=== PATIENT | female | born 1955 | race Caucasian/White ===

== ENCOUNTER 2017-07-06 13:20 | Emergency (ER) | payer MEDICARE ==
[2017-07-06] MEDS ORDERED: methylPREDNISolone SOD SUCC PF 125 MG/2 ML VIAL. IV ONE (13:45)
[2017-07-06] MEDS ORDERED: IPRATRPIUM/ALBUTEROL 0.5/2.5MG 3 ML NEBU. NEB ONE (13:45)
[2017-07-06 13:56] LABS: BASO # 0.1 x10^3/uL (0.0-0.2); BASO % 1 % (0-3); EOS # 0.1 x10^3/uL (0.0-0.7); EOS % 1 % (0-3); HEMATOCRIT 47.7 % (36.0-47.0); HEMOGLOBIN 16.3 g/dL (12.0-15.5); LYMPH % 18 % (24-48); MEAN CORPUSCULAR HEMOGLOBIN 31 pg (25-35); MEAN CORPUSCULAR HGB CONC 34 g/dL (31-37); MEAN CORPUSCULAR VOLUME 91 fL (79-100); MONO # 0.8 x10^3/uL (0.0-1.1); MONO % 7 % (0-9); NEUT # 8.4 x10^3uL (1.8-7.7); NEUT % 73 % (31-73); PLATELET COUNT 167 x10^3/uL (140-400); RED BLOOD COUNT 5.23 x10^6/uL (3.50-5.40); WHITE BLOOD COUNT 11.5 x10^3/uL (4.0-11.0)
--- NOTE | 2017-07-06 14:10 | RAD ---
Chest radiograph 07/06/2017 3:31 PM Indication: Shortness of breath Comparison: None available Technique: PA and lateral views of the chest are provided. Findings: Cardiomediastinal silhouette is within normal limits. No pleural effusions, pulmonary vascular congestion or pneumothorax. There is minimal interstitial prominence. The lungs are otherwise clear. Osseous structures are normal. Cholecystectomy clips are identified in the right upper quadrant. Impression: There is minimal interstitial prominence which may represent early interstitial pneumonitis versus edema. Short-term follow-up radiograph may be of benefit.
[2017-07-06 14:14] LABS: INFLUENZA A PATIENT NEGATIVE (NEGATIVE); INFLUENZA B PATIENT NEGATIVE (NEGATIVE)
[2017-07-06 14:17] LABS: ALBUMIN 3.8 g/dL (3.4-5.0); ALBUMIN/GLOBULIN RATIO 0.9 (1.0-1.7); CALCIUM 9.1 mg/dL (8.5-10.1); CREATININE 1.5 mg/dL (0.6-1.0); GFR 35.2; POTASSIUM 3.7 mmol/L (3.5-5.1); TOTAL BILIRUBIN 0.3 mg/dL (0.2-1.0); TOTAL PROTEIN 7.9 g/dL (6.4-8.2)
--- NOTE | 2017-07-06 14:25 | PHYS DOC ---
Past History Past Medical History: CAD, COPD, Hypertension Smoking: Cigarettes, Greater than 1 pack/day Alcohol Use: Occasionally Drug Use: None Adult General Chief Complaint Chief Complaint: SHORTNESS OF BREATH HPI HPI 62-year-old female patient with history of smoking one pack of cigarettes a day not home oxygen complaining of productive cough with white sputum and shortness of breath that getting worse with exertion for the last 4 or 5 days after she ran out of her medication. Patient complaining of nasal congestion and pain in her throat and her chest during episodes of cough without fever and chills. Patient complaining of few episodes of diarrhea daily without vomiting and urinary symptom. Review of Systems Review of Systems Constitutional: Denies fever or chills [] Eyes: Denies change in visual acuity, redness, or eye pain [] HENT: Reports nasal congestion and sore throat [] Respiratory: Reports cough and shortness of breath [] Cardiovascular: No additional information not addressed in HPI [] GI: Denies abdominal pain, nausea, vomiting, bloody stools, reports diarrhea [] : Denies dysuria or hematuria [] Musculoskeletal: Denies back pain or joint pain [] Integument: Denies rash or skin lesions [] Neurologic: Denies headache, focal weakness or sensory changes [] Endocrine: Denies polyuria or polydipsia [] All other systems were reviewed and found to be within normal limits, except as documented in this note. Current Medications Current Medications Current Medications Medications (Trade) Dose Ordered Sig/Joseph Start Time Stop Time Status Last Admin Dose Admin Albuterol/ Ipratropium (Duoneb) 3 ml 1X ONCE 07/06/17 13:45 07/06/17 14:11 DC 07/06/17 13:41 3 ML Methylprednisolone Sodium Succinate (SOLU-Medrol 125MG VIAL) 125 mg 1X ONCE 07/06/17 13:45 07/06/17 14:11 DC 07/06/17 13:56 125 MG Allergies Allergies Allergies Coded Allergies Type Severity Reaction Last Updated Verified codeine Allergy Intermediate 07/06/17 Yes Physical Exam Physical Exam Constitutional: Well developed, moderate distress, non-toxic appearance. [] HENT: Normocephalic, atraumatic, bilateral external ears normal, oropharynx moist, no oral exudates, nose normal. [] Eyes: PERRLA, EOMI, conjunctiva normal, no discharge. [] Neck: Normal range of motion, no tenderness, supple, no stridor. [] Cardiovascular:Heart rate regular rhythm, no murmur [] Lungs & Thorax: Bilateral rhonchi with decreased of air movement Abdomen: Bowel sounds normal, soft, no tenderness, no masses, no pulsatile masses. [] Skin: Warm, dry, no erythema, no rash. [] Back: No tenderness, no CVA tenderness. [] Extremities: No tenderness, no cyanosis, no clubbing, ROM intact, no edema. [] Neurologic: Alert and oriented X 3, normal motor function, normal sensory function, no focal deficits noted. [] Psychologic: Affect normal, judgement normal, mood normal. [] Current Patient Data Vital Signs Vital Signs Date Time Temp Pulse Resp B/P (MAP) Pulse Ox O2 Delivery O2 Flow Rate FiO2 07/06/17 13:41 93 Nasal Cannula 2.0 Lab Results Laboratory Tests Test 07/06/17 13:40 White Blood Count 11.5 x10^3/uL (4.0-11.0) H Red Blood Count 5.23 x10^6/uL (3.50-5.40) Hemoglobin 16.3 g/dL (12.0-15.5) H Hematocrit 47.7 % (36.0-47.0) H Mean Corpuscular Volume 91 fL (79-100) Mean Corpuscular Hemoglobin 31 pg (25-35) Mean Corpuscular Hemoglobin Concent 34 g/dL (31-37) Red Cell Distribution Width 14.0 % (11.5-14.5) Platelet Count 167 x10^3/uL (140-400) Neutrophils (%) (Auto) 73 % (31-73) Lymphocytes (%) (Auto) 18 % (24-48) L Monocytes (%) (Auto) 7 % (0-9) Eosinophils (%) (Auto) 1 % (0-3) Basophils (%) (Auto) 1 % (0-3) Neutrophils # (Auto) 8.4 x10^3uL (1.8-7.7) H Lymphocytes # (Auto) 2.0 x10^3/uL (1.0-4.8) Monocytes # (Auto) 0.8 x10^3/uL (0.0-1.1) Eosinophils # (Auto) 0.1 x10^3/uL (0.0-0.7) Basophils # (Auto) 0.1 x10^3/uL (0.0-0.2) Sodium Level 143 mmol/L (136-145) Potassium Level 3.7 mmol/L (3.5-5.1) Chloride Level 103 mmol/L (98-107) Carbon Dioxide Level 32 mmol/L (21-32) Anion Gap 8 (6-14) Blood Urea Nitrogen 18 mg/dL (7-20) Creatinine 1.5 mg/dL (0.6-1.0) H Estimated GFR (Cockcroft-Gault) 35.2 BUN/Creatinine Ratio 12 (6-20) Glucose Level 128 mg/dL (70-99) H Lactic Acid Level 1.6 mmol/L (0.4-2.0) Calcium Level 9.1 mg/dL (8.5-10.1) Total Bilirubin 0.3 mg/dL (0.2-1.0) Aspartate Amino Transferase (AST) 18 U/L (15-37) Alanine Aminotransferase (ALT) 21 U/L (14-59) Alkaline Phosphatase 109 U/L (46-116) Creatine Kinase 46 U/L (26-192) Troponin I Quantitative < 0.017 ng/mL (0-0.055) XB-Bpl-Q-Type Natriuretic Peptide 82 pg/mL (0-124) Total Protein 7.9 g/dL (6.4-8.2) Albumin 3.8 g/dL (3.4-5.0) Albumin/Globulin Ratio 0.9 (1.0-1.7) L Influenza Type A (Rapid) Negative (NEGATIVE) Influenza Type B (Rapid) Negative (NEGATIVE) EKG EKG EKG interpreted by me. EKG at 1353 showed normal sinus rhythm with prolonged QT without ST and T wave abnormality[] Radiology/Procedures Radiology/Procedures [] Course & Med Decision Making Course & Med Decision Making Pertinent Labs and Imaging studies reviewed. (See chart for details) Evaluation of patient in ER showed 63-year-old female patient with history of smoking complaining of shortness of breath and productive cough for several days after she ran out of her medication. Patient had O2 sats of 84 at arrival to ER that improved with oxygen to 91 and 92%. Chest x-ray did not show infiltration. Patient had negative lactic acid. Patient treated with IV fluid, Rocephin, Solu-Medrol, DuoNeb and felt better. Patient refuses admission and signed AGAINST MEDICAL ADVICE. [] Dragon Disclaimer Dragon Disclaimer This electronic medical record was generated, in whole or in part, using a voice recognition dictation system. Departure Departure: Impression: Primary Impression: COPD exacerbation Additional Impressions: Hypoxia Tobacco abuse Tobacco abuse counseling Renal insufficiency Noncompliance by refusing service Disposition: AGAINST MEDICAL ADVICE (At 1529) Condition: IMPROVED Referrals: PCP,NO (PCP) Patient Instructions: Chronic Obstructive Pulmonary Disease Exacerbation, Hypoxemia, Smoking Cessation Additional Instructions: Quit smoking Follow-up with your primary care physician in one or 2 days Return to emergency room if not getting better Scripts Albuterol Sulfate (PROAIR HFA INHALER) 8.5 Gm Hfa.aer.ad 2 PUFF INH PRN Q6HRS Y for SHORTNESS OF BREATH, #1 INHALER 0 Refills Prov: PAUL PURVIS MD 07/06/17 Doxycycline Hyclate (DOXYCYCLINE HYCLATE) 100 Mg Capsule 1 CAP PO BID, #14 CAP Prov: PAUL PURVIS MD 07/06/17 Benzonatate (TESSALON PERLE) 100 Mg Capsule 1 CAP PO TID, #30 CAP Prov: PAUL PURVIS MD 07/06/17 Methylprednisolone (MEDROL) 4 Mg Tab.ds.pk 1 PKG PO UD, #1 PKG Prov: PAUL PURIVS MD 07/06/17 Critical Care Time Critical care time was [60] minutes exclusive of procedures. Problem Qualifiers PAUL PURVIS MD Jul 06, 2017 14:25
[2017-07-06] MEDS ORDERED: IV NORMAL SALINE 500ML 500 ML IV ONE (14:30)
[2017-07-06 14:53] LABS: BGAS PH 7.38 (7.35-7.45)
[2017-07-06] MEDS ORDERED: cefTRIAXone IV Push 1 GM VIAL. IVP ONE (15:00)
[2017-07-06] MEDS ORDERED: METH4TAB2 PO (15:35)
[2017-07-06] MEDS ORDERED: ALBU8.5H8 INH (15:35)
[2017-07-06] MEDS ORDERED: BENZ100C PO (15:35)
[2017-07-06] MEDS ORDERED: DOXY100C2 PO (15:35)
--- NOTE | 2017-07-06 16:02 | EKG ---
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
[2017-07-06 16:35] VITALS: BP 108/68
== END 2017-07-06 16:30 | disposition left against medical advice (07) ==
LOC: ER 13:20
DX: J44.1 Chronic obstructive pulmonary disease with (acute) exacerbation (principal); R09.02 Hypoxemia; N28.9 Disorder of kidney and ureter, unspecified; F17.210 Nicotine dependence, cigarettes, uncomplicated; I25.10 Atherosclerotic heart disease of native coronary artery without angina pectoris; I10 Essential (primary) hypertension; Z91.19 Patient's noncompliance with other medical treatment and regimen; Z71.6 Tobacco abuse counseling; Z88.5 Allergy status to narcotic agent
CPT/HCPCS: 36415; 71046; 80053; 82550; 82803; 83605; 83880; 84484; 85025; 87040; 87804; 93005; 94640; 96361; 96374; 96375; 99285; J0696; J2930; J7040; J7620

== ENCOUNTER 2017-07-18 15:49 | Emergency (ER) | payer MEDICARE ==
[~2017-07-18] VITALS: Ht 154.9 cm; Wt 59.0 kg
[~2017-07-18 15:49] MED LIST: ALBU8.5H8 INH; BENZ100C PO; DOXY100C2 PO; METH4TAB2 PO
[2017-07-18] MEDS ORDERED: ALBUTEROL SULFATE 2.5 MG/3 ML NEBU. ONE (16:25)
[2017-07-18] MEDS ORDERED: methylPREDNISolone SOD SUCC PF 40 MG/ML VIAL. IV ONE (16:40)
[2017-07-18] MEDS ORDERED: IPRATRPIUM/ALBUTEROL 0.5/2.5MG 3 ML NEBU. NEB ONE (16:40)
--- NOTE | 2017-07-18 16:55 | RAD ---
2 view chest 07/18/2017 Clinical indication: Shortness of air, tobacco use. Comparison: 07/06/2017 chest. Findings: Cardiac and mediastinal silhouettes are unremarkable. No pleural effusion, pneumothorax or focal consolidation. There are right upper quadrant cholecystectomy clips. Impression: No acute cardiopulmonary abnormality.
[2017-07-18 17:27] LABS: BASO # 0.1 x10^3/uL (0.0-0.2); BASO % 1 % (0-3); EOS # 0.1 x10^3/uL (0.0-0.7); EOS % 1 % (0-3); HEMATOCRIT 46.1 % (36.0-47.0); HEMOGLOBIN 15.5 g/dL (12.0-15.5); LYMPH # 1.9 x10^3/uL (1.0-4.8); LYMPH % 21 % (24-48); MEAN CORPUSCULAR HEMOGLOBIN 31 pg (25-35); MEAN CORPUSCULAR HGB CONC 34 g/dL (31-37); MEAN CORPUSCULAR VOLUME 92 fL (79-100); MONO # 0.7 x10^3/uL (0.0-1.1); MONO % 7 % (0-9); NEUT # 6.6 x10^3uL (1.8-7.7); NEUT % 70 % (31-73); PLATELET COUNT 113 x10^3/uL (140-400); RED BLOOD COUNT 5.02 x10^6/uL (3.50-5.40); RED CELL DISTRIBUTION WIDTH 14.2 % (11.5-14.5); WHITE BLOOD COUNT 9.4 x10^3/uL (4.0-11.0)
[2017-07-18] MEDS ORDERED: PRED-220 PO (17:42)
[2017-07-18] MEDS ORDERED: FLUT1DIS3 IH (17:42)
[2017-07-18] MEDS ORDERED: TIOT18CA IH (17:42)
[2017-07-18] MEDS ORDERED: ALBU8.5H8 INH (17:42)
--- NOTE | 2017-07-18 17:42 | PHYS DOC ---
Past History Past Medical History: CAD, COPD, Hypertension Past Surgical History: Cholecystectomy, Hysterectomy Smoking: Cigarettes, Greater than 1 pack/day Alcohol Use: Occasionally Drug Use: None Adult General Chief Complaint Chief Complaint: SHORTNESS OF BREATH HPI HPI Patient is a 62 year old F who presents with cough and shortness of breath over the past 1-2 weeks. She says that she has been out of her inhalers during this time. Her symptoms are gradually worsened. She denies fever sweats or chills. Her cough is not productive. Her symptoms are similar to previous episodes of COPD exacerbation. She has no other associated symptoms at this time. She has no other exacerbating or alleviating factors. Review of Systems Review of Systems Constitutional: Denies fever or chills [] Eyes: Denies change in visual acuity, redness, or eye pain [] HENT: Denies nasal congestion or sore throat [] Respiratory: Negative except history of present illness Cardiovascular: No additional information not addressed in HPI [] GI: Denies abdominal pain, nausea, vomiting, bloody stools or diarrhea [] : Denies dysuria or hematuria [] Musculoskeletal: Denies back pain or joint pain [] Integument: Denies rash or skin lesions [] Neurologic: Denies headache, focal weakness or sensory changes [] Endocrine: Denies polyuria or polydipsia [] All other systems were reviewed and found to be within normal limits, except as documented in this note. Family History Family History No current medications were reviewed Current Medications Current Medications Current Medications Medications (Trade) Dose Ordered Sig/Joseph Start Time Stop Time Status Last Admin Dose Admin Albuterol Sulfate (Ventolin) 2.5 mg STK-MED ONCE 07/18/17 16:25 07/18/17 16:26 DC Albuterol/ Ipratropium (Duoneb) 3 ml 1X ONCE 07/18/17 16:40 07/18/17 16:41 DC 07/18/17 16:17 3 ML Methylprednisolone Sodium Succinate (SOLU-Medrol 40MG VIAL) 29.5 mg 1X ONCE 07/18/17 16:40 07/18/17 16:41 DC 07/18/17 17:03 40 MG Allergies Allergies Allergies Coded Allergies Type Severity Reaction Last Updated Verified codeine Allergy Intermediate 07/06/17 Yes Physical Exam Physical Exam Constitutional: Well developed, well nourished, no acute distress, non-toxic appearance. [] HENT: Normocephalic, atraumatic, bilateral external ears normal, oropharynx moist, no oral exudates, nose normal. [] Eyes: EOMI, conjunctiva normal, no discharge. [] Neck: Normal range of motion, no tenderness, supple, no stridor. [] Cardiovascular:Heart rate regular rhythm, no murmur [] Lungs & Thorax: Diminished breath sounds bilaterally with moderate wheezing and tightness noted bilaterally. Significant improvement was noted after breathing treatments and steroids Abdomen: Bowel sounds normal, soft, no tenderness, no masses, no pulsatile masses. [] Skin: Warm, dry, no erythema, no rash. [] Back: No tenderness, no CVA tenderness. [] Extremities: No tenderness, no cyanosis, no clubbing, ROM intact, no edema. [] Neurologic: Alert and oriented X 3, normal motor function, normal sensory function, no focal deficits noted. [] Psychologic: Affect normal, judgement normal, mood normal. [] Current Patient Data Vital Signs Vital Signs Date Time Temp Pulse Resp B/P (MAP) Pulse Ox O2 Delivery O2 Flow Rate FiO2 07/18/17 16:27 93 Room Air 07/18/17 16:16 98.2 104 26 Lab Results Laboratory Tests Test 07/18/17 17:05 White Blood Count 9.4 x10^3/uL (4.0-11.0) Red Blood Count 5.02 x10^6/uL (3.50-5.40) Hemoglobin 15.5 g/dL (12.0-15.5) Hematocrit 46.1 % (36.0-47.0) Mean Corpuscular Volume 92 fL (79-100) Mean Corpuscular Hemoglobin 31 pg (25-35) Mean Corpuscular Hemoglobin Concent 34 g/dL (31-37) Red Cell Distribution Width 14.2 % (11.5-14.5) Platelet Count 113 x10^3/uL (140-400) L Neutrophils (%) (Auto) 70 % (31-73) Lymphocytes (%) (Auto) 21 % (24-48) L Monocytes (%) (Auto) 7 % (0-9) Eosinophils (%) (Auto) 1 % (0-3) Basophils (%) (Auto) 1 % (0-3) Neutrophils # (Auto) 6.6 x10^3uL (1.8-7.7) Lymphocytes # (Auto) 1.9 x10^3/uL (1.0-4.8) Monocytes # (Auto) 0.7 x10^3/uL (0.0-1.1) Eosinophils # (Auto) 0.1 x10^3/uL (0.0-0.7) Basophils # (Auto) 0.1 x10^3/uL (0.0-0.2) EKG EKG [] Radiology/Procedures Radiology/Procedures Chest x-ray Impressions: No acute disease noted, emphysematous Course & Med Decision Making Course & Med Decision Making Pertinent Labs and Imaging studies reviewed. (See chart for details) [] Dragon Disclaimer Dragon Disclaimer This electronic medical record was generated, in whole or in part, using a voice recognition dictation system. Departure Departure: Impression: Primary Impression: COPD exacerbation Disposition: HOME, SELF-CARE Condition: IMPROVED Referrals: NON,STAFF (PCP) Patient Instructions: Chronic Obstructive Pulmonary Disease Exacerbation Additional Instructions: Ashley was seen in the emergency department for shortness of breath. No emergency medical condition was found on history or physical exam. She did have moderate improvement with breathing treatments and steroids in the emergency room. She is given prescriptions for inhalers and oral steroids. She was advised to return to the emergency room if she develops new or worsening symptoms. She was also advised follow-up with her primary care doctor in the next 3-5 days for further management. Scripts Fluticasone/Salmeterol (ADVAIR 250-50 DISKUS) 1 Each Disk.w.dev 1 PUFF IH BID, #3 INHALER 0 Refills Prov: REGI MELISSA MD 07/18/17 Tiotropium [place] (SPIRIVA) 18 Mcg Cap.w.dev 1 CAP IH DAILY, #30 CAP 0 Refills Prov: REGI MELISSA MD 07/18/17 Prednisone (PREDNISONE) 10 Mg Tablet 40 MG PO DAILY for 5 Days, #20 TAB Prov: REGI MELISSA MD 07/18/17 Albuterol Sulfate (PROAIR HFA INHALER) 8.5 Gm Hfa.aer.ad 1 PUFF INH PRN Q6HRS Y for SHORTNESS OF BREATH for 7 Days, INHALER 0 Refills Prov: REGI MELISSA MD 07/18/17 REGI MELISSA MD Jul 18, 2017 17:42
[2017-07-18 17:51] LABS: CALCIUM 8.7 mg/dL (8.5-10.1); CREATININE 1.1 mg/dL (0.6-1.0); GFR 50.3
[2017-07-18 17:52] LABS: POTASSIUM 4.1 mmol/L (3.5-5.1)
[2017-07-18 17:57] VITALS: BP 136/91
== END 2017-07-18 18:02 | disposition home or self-care (01) ==
LOC: ER 15:49
DX: J44.1 Chronic obstructive pulmonary disease with (acute) exacerbation (principal); I25.10 Atherosclerotic heart disease of native coronary artery without angina pectoris; I10 Essential (primary) hypertension; F17.210 Nicotine dependence, cigarettes, uncomplicated; Z88.5 Allergy status to narcotic agent
CPT/HCPCS: 36415; 71046; 80048; 82553; 83880; 84484; 85025; 94640; 96374; 99285; J2920; J7620

== ENCOUNTER 2017-07-29 15:30 | Observation (INO) | payer MEDICARE ==
[~2017-07-29] VITALS: Ht 157.5 cm; Wt 61.0 kg
[~2017-07-29 15:30] MED LIST changes: +FLUT1DIS3 IH; +PRED-220 PO; +TIOT18CA IH
[2017-07-29 16:21] LABS: BASO # 0.1 x10^3/uL (0.0-0.2); BASO % 1 % (0-3); EOS # 0.1 x10^3/uL (0.0-0.7); EOS % 1 % (0-3); HEMATOCRIT 46.6 % (36.0-47.0); HEMOGLOBIN 15.6 g/dL (12.0-15.5); LYMPH # 2.7 x10^3/uL (1.0-4.8); LYMPH % 26 % (24-48); MEAN CORPUSCULAR HEMOGLOBIN 31 pg (25-35); MEAN CORPUSCULAR HGB CONC 34 g/dL (31-37); MEAN CORPUSCULAR VOLUME 94 fL (79-100); MONO # 0.9 x10^3/uL (0.0-1.1); MONO % 9 % (0-9); NEUT # 6.5 x10^3uL (1.8-7.7); NEUT % 63 % (31-73); PLATELET COUNT 147 x10^3/uL (140-400); RED BLOOD COUNT 4.99 x10^6/uL (3.50-5.40); RED CELL DISTRIBUTION WIDTH 14.3 % (11.5-14.5); WHITE BLOOD COUNT 10.3 x10^3/uL (4.0-11.0)
--- NOTE | 2017-07-29 16:32 | RAD ---
EXAM: Chest, single view. HISTORY: Chest pain. COMPARISON: None. FINDINGS: A frontal view of the chest is obtained. There is no infiltrate, effusion or pneumothorax. The heart is normal in size. IMPRESSION: No acute pulmonary finding. Electronically signed by: Falguni Hairston MD (07/29/2017 4:28 PM) [place] [id number]
[2017-07-29 16:45] LABS: ALBUMIN 3.5 g/dL (3.4-5.0); ALBUMIN/GLOBULIN RATIO 1.1 (1.0-1.7); ALK PHOS 96 U/L (46-116); ALT (SGPT) 24 U/L (14-59); ANION GAP 10 (6-14); AST (SGOT) 17 U/L (15-37); BLOOD UREA NITROGEN 13 mg/dL (7-20); BUN/CREATININE RATIO 12 (6-20); CALCIUM 8.5 mg/dL (8.5-10.1); CARBON DIOXIDE 28 mmol/L (21-32); CHLORIDE 103 mmol/L (98-107); CREATINE KINASE 33 U/L (26-192); CREATININE 1.1 mg/dL (0.6-1.0); GFR 50.3; GLUCOSE 111 mg/dL (70-99); LIPASE 206 U/L (73-393); POTASSIUM 3.9 mmol/L (3.5-5.1); SODIUM 141 mmol/L (136-145); TOTAL BILIRUBIN 0.3 mg/dL (0.2-1.0); TOTAL PROTEIN 6.7 g/dL (6.4-8.2)
--- NOTE | 2017-07-29 17:16 | EKG ---
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
--- NOTE | 2017-07-29 17:26 | PHYS DOC ---
Past History Past Medical History: CAD, COPD, Hypertension Past Surgical History: Cholecystectomy, Hysterectomy, Tonsillectomy Smoking: Cigarettes, Greater than 1 pack/day Alcohol Use: Occasionally Drug Use: None Adult General Chief Complaint Chief Complaint: CHEST PAIN [facility] HPI 62-year-old female patient with history of hypertension and COPD and currently smoking brought in by EMS because of chest pain. Patient complaining of nonexertional substernal chest pain as a sharp pain with shortness of breath, dizziness, palpitation and nausea without radiation of the pain that started around 1430. Patient rated her pain 9/10 and states she took nitroglycerin 1 and her pain resolved after 20 minutes. Patient states she had episodes of chest pain but today her pain was worse than usual. Patient states she had a chemical stress test 1 year ago with unremarkable results. Patient denies history of the artery disease but according to EMR she had history of coronary artery disease. She denies having history of coronary artery disease. Review of Systems Review of Systems Constitutional: Denies fever or chills [] Eyes: Denies change in visual acuity, redness, or eye pain [] HENT: Denies nasal congestion or sore throat [] Respiratory: Reports cough and shortness of breath Cardiovascular: No additional information not addressed in HPI [] GI: Denies abdominal pain, nausea, vomiting, bloody stools or diarrhea [] : Denies dysuria or hematuria [] Musculoskeletal: Denies back pain or joint pain [] Integument: Denies rash or skin lesions [] Neurologic: Denies headache, focal weakness or sensory changes [] Endocrine: Denies polyuria or polydipsia [] All other systems were reviewed and found to be within normal limits, except as documented in this note. Allergies Allergies Allergies Coded Allergies Type Severity Reaction Last Updated Verified codeine Allergy Intermediate 07/06/17 Yes Physical Exam Physical Exam Constitutional: Well developed, well nourished, mild distress, non-toxic appearance. [] HENT: Normocephalic, atraumatic, bilateral external ears normal, oropharynx moist, no oral exudates, nose normal. [] Eyes: PERRLA, EOMI, conjunctiva normal, no discharge. [] Neck: Normal range of motion, no tenderness, supple, no stridor. [] Cardiovascular:Heart rate regular rhythm, no murmur [] Lungs & Thorax: Bilateral breath sounds clear to auscultation [] Abdomen: Bowel sounds normal, soft, no tenderness, no masses, no pulsatile masses. [] Skin: Warm, dry, no erythema, no rash. [] Back: No tenderness, no CVA tenderness. [] Extremities: No tenderness, no cyanosis, no clubbing, ROM intact, no edema. [] Neurologic: Alert and oriented X 3, normal motor function, normal sensory function, no focal deficits noted. [] Psychologic: Affect normal, judgement normal, mood normal. [] Current Patient Data Vital Signs Vital Signs Date Time Temp Pulse Resp B/P (MAP) Pulse Ox O2 Delivery O2 Flow Rate FiO2 07/29/17 16:41 73 26 103/43 (63) 96 Nasal Cannula 2.0 07/29/17 15:30 98.2 Lab Results Laboratory Tests Test 07/29/17 16:00 White Blood Count 10.3 x10^3/uL (4.0-11.0) Red Blood Count 4.99 x10^6/uL (3.50-5.40) Hemoglobin 15.6 g/dL (12.0-15.5) H Hematocrit 46.6 % (36.0-47.0) Mean Corpuscular Volume 94 fL (79-100) Mean Corpuscular Hemoglobin 31 pg (25-35) Mean Corpuscular Hemoglobin Concent 34 g/dL (31-37) Red Cell Distribution Width 14.3 % (11.5-14.5) Platelet Count 147 x10^3/uL (140-400) Neutrophils (%) (Auto) 63 % (31-73) Lymphocytes (%) (Auto) 26 % (24-48) Monocytes (%) (Auto) 9 % (0-9) Eosinophils (%) (Auto) 1 % (0-3) Basophils (%) (Auto) 1 % (0-3) Neutrophils # (Auto) 6.5 x10^3uL (1.8-7.7) Lymphocytes # (Auto) 2.7 x10^3/uL (1.0-4.8) Monocytes # (Auto) 0.9 x10^3/uL (0.0-1.1) Eosinophils # (Auto) 0.1 x10^3/uL (0.0-0.7) Basophils # (Auto) 0.1 x10^3/uL (0.0-0.2) Sodium Level 141 mmol/L (136-145) Potassium Level 3.9 mmol/L (3.5-5.1) Chloride Level 103 mmol/L (98-107) Carbon Dioxide Level 28 mmol/L (21-32) Anion Gap 10 (6-14) Blood Urea Nitrogen 13 mg/dL (7-20) Creatinine 1.1 mg/dL (0.6-1.0) H Estimated GFR (Cockcroft-Gault) 50.3 BUN/Creatinine Ratio 12 (6-20) Glucose Level 111 mg/dL (70-99) H Calcium Level 8.5 mg/dL (8.5-10.1) Total Bilirubin 0.3 mg/dL (0.2-1.0) Aspartate Amino Transferase (AST) 17 U/L (15-37) Alanine Aminotransferase (ALT) 24 U/L (14-59) Alkaline Phosphatase 96 U/L (46-116) Creatine Kinase 33 U/L (26-192) Creatine Kinase MB (Mass) < 0.5 ng/mL (0.0-3.6) Creatine Kinase MB Relative Index 1.5 % (0-4) Troponin I Quantitative < 0.017 ng/mL (0-0.055) EX-Wjf-G-Type Natriuretic Peptide 113 pg/mL (0-124) Total Protein 6.7 g/dL (6.4-8.2) Albumin 3.5 g/dL (3.4-5.0) Albumin/Globulin Ratio 1.1 (1.0-1.7) Lipase 206 U/L (73-393) EKG EKG [EKG interpreted by me. EKG at 1548 showed] normal sinus rhythm at rate of [address] and T wave abnormality Radiology/Procedures Radiology/Procedures Chest x-ray reported unremarkable[] Course & Med Decision Making Course & Med Decision Making Pertinent Labs and Imaging studies reviewed. (See chart for details) Evaluation of patient in ER showed 63-year-old female patient with complaining of chest pain. Patient has several cholecystectomy. Labs and EKG was unremarkable. Patient had 1 episode of hypotension that improved with IV fluid and position and her blood pressure was more than 100 without change. Plan to admit patient for observation of chest pain. Dr. Garcia accepted admission at 1725. [] Dragon Disclaimer Dragon Disclaimer This electronic medical record was generated, in whole or in part, using a voice recognition dictation system. Departure Departure: Impression: Primary Impression: Chest pain Additional Impressions: Tobacco abuse Tobacco abuse counseling Disposition: 09 ADMITTED INPATIENT (at 1725) Admitting Physician: Melissa Garcia Condition: IMPROVED Referrals: NON,STAFF (PCP) Problem Qualifiers PAUL PURVIS MD Jul 29, 2017 17:26
[2017-07-29] MEDS ORDERED: ASPIRIN 81 MG TAB.CHEW PO ONE (17:45)
[2017-07-29 18:26] VITALS: BP 134/83
[2017-07-29] MEDS ORDERED: ACETAMINOPHEN 325 MG TABLET PO PRN (18:30)
[2017-07-29 20:01] VITALS: BP 111/61
[2017-07-29] MEDS: NICOTINE 21MG PATCH. TD SCH (20:45)
[2017-07-29 22:58] VITALS: BP 120/70
[2017-07-29] MEDS ORDERED: FLUT1DIS3 IH (23:06)
[2017-07-29] MEDS ORDERED: NITR0.4T22 SL (23:06)
[2017-07-29] MEDS ORDERED: FURO40TA4 PO (23:06)
[2017-07-29] MEDS ORDERED: LISI-338 PO (23:06)
[2017-07-29] MEDS ORDERED: TRAZ-90 PO (23:06)
[2017-07-29] MEDS ORDERED: CARV6.252 PO (23:06)
[2017-07-29] MEDS ORDERED: HYDR25TA PO (23:06)
[2017-07-29] MEDS ORDERED: POTA20TA4 PO (23:06)
[2017-07-29] MEDS ORDERED: SERT100T PO (23:06)
[2017-07-29] MEDS ORDERED: NITROGLYCERIN SUBLINGUAL 0.4 MG BOTTLE OF 25. SL PRN (23:15)
[2017-07-29] MEDS ORDERED: ALBUTEROL SULFATE 8GM INHALER. INH PRN (23:15)
[2017-07-30 06:05] VITALS: BP 110/68
[2017-07-30] MEDS ORDERED: ALBUTEROL SULFATE 2.5 MG/3 ML NEBU. NEB PRN (07:15)
[2017-07-30 07:30] LABS: BASO % 1 % (0-3); EOS # 0.1 x10^3/uL (0.0-0.7); EOS % 1 % (0-3); HEMATOCRIT 42.4 % (36.0-47.0); HEMOGLOBIN 14.7 g/dL (12.0-15.5); LYMPH # 1.7 x10^3/uL (1.0-4.8); LYMPH % 24 % (24-48); MEAN CORPUSCULAR HEMOGLOBIN 32 pg (25-35); MEAN CORPUSCULAR HGB CONC 35 g/dL (31-37); MEAN CORPUSCULAR VOLUME 92 fL (79-100); MONO # 0.7 x10^3/uL (0.0-1.1); MONO % 9 % (0-9); NEUT # 4.7 x10^3uL (1.8-7.7); NEUT % 65 % (31-73); PLATELET COUNT 124 x10^3/uL (140-400); RED BLOOD COUNT 4.63 x10^6/uL (3.50-5.40); RED CELL DISTRIBUTION WIDTH 14.2 % (11.5-14.5); WHITE BLOOD COUNT 7.2 x10^3/uL (4.0-11.0)
[2017-07-30 07:42] LABS: ALBUMIN/GLOBULIN RATIO 0.9 (1.0-1.7); CALCIUM 8.8 mg/dL (8.5-10.1); CREATININE 1.1 mg/dL (0.6-1.0); GFR 50.3; MAGNESIUM 1.9 mg/dL (1.8-2.4); POTASSIUM 4.1 mmol/L (3.5-5.1); TOTAL BILIRUBIN 0.4 mg/dL (0.2-1.0); TOTAL PROTEIN 6.4 g/dL (6.4-8.2)
[2017-07-30] MEDS ORDERED: BUDESONIDE 0.5 MG/2 ML NEBU NEB SCH (08:00)
[2017-07-30] MEDS ORDERED: CARVEDILOL 6.25 MG TABLET PO SCH (08:00)
[2017-07-30] MEDS: NICOTINE 21MG PATCH. TD SCH (08:45)
[2017-07-30] MEDS ORDERED: SERTRALINE 100 MG TABLET. PO SCH (09:00)
[2017-07-30] MEDS ORDERED: FUROSEMIDE 40 MG TABLET PO SCH (09:00)
[2017-07-30] MEDS ORDERED: LISINOPRIL 5 MG TABLET. PO SCH (09:00)
[2017-07-30] MEDS ORDERED: NON FORMULARY ITEM (Fluticasone/Salmeterol (Advair 250-50 Diskus) 1 PUFF) IH SCH (09:00)
[2017-07-30] MEDS ORDERED: POTASSIUM CHLORIDE 20 MEQ TABLET.ER. PO SCH (09:00)
[2017-07-30 10:24] VITALS: BP 122/81
[2017-07-30] MEDS: ALBUTEROL SULFATE 2.5 MG/3 ML NEBU. NEB SCH ×3 (11:06→15:13)
[2017-07-30 11:07] LABS: THYROID STIM HORMONE (TSH) 2.603 uIU/mL (0.358-3.740)
[2017-07-30 15:11] VITALS: BP 107/72
[2017-07-30] MEDS ORDERED: ESOM20CA PO (15:49)
[2017-07-30] MEDS ORDERED: NICO1PAT21 TP (15:49)
[2017-07-30] MEDS ORDERED: ATOR20TA PO (15:49)
--- NOTE | 2017-07-30 17:14 | CONS ---
DATE OF CONSULTATION: 07/30/2017 REASON FOR CONSULTATION: Chest pain. HISTORY OF PRESENT ILLNESS: The patient is a 62-year-old woman with past medical history as noted below who presents to the hospital in the setting of sharp stabbing pain has recurred over the course of the last several months. She said over the course of the last 4 months or so, she has had some intermittent sharp stabbing pains and since then has been trying to get through this, but continues to smoke approximately a pack a day. Yesterday, when her pain was significantly worsened, she presented to the ER for further evaluation and treatment. Upon arrival to the ER, she did not have any significant EKG changes or laboratory abnormalities, and was admitted to the hospital for rule out. In speaking with the patient today, she reports that at baseline, she is quite sedentary and does not do any significant activity. She does have chronic exertional dyspnea. She had a remote stress test apparently in the setting of dyspnea about 5-6 years ago. PAST MEDICAL HISTORY: 1. Tobacco abuse. 2. Hypertension. 3. Dyslipidemia. 4. COPD. 5. Hypertension. ALLERGIES: CODEINE. CURRENT CARDIAC MEDICATIONS: 1. Lisinopril 5 mg daily. 2. Lasix 40 mg daily. 3. Carvedilol 6.25 mg b.i.d. 4. Aspirin 325 mg x 1. FAMILY HISTORY: No evidence of sudden cardiac or early atherosclerotic heart disease. SOCIAL HISTORY: The patient recently moved up here from [place]. She smokes 1 pack per day. Denies any alcohol or illicit drug use. REVIEW OF SYSTEMS: Negative for 10 out of 14 systems reviewed, unless otherwise mentioned above in the HPI. PHYSICAL EXAMINATION: VITAL SIGNS: Afebrile, heart rate 76, 20, 107/72, 91% on room air. GENERAL: She is alert and oriented, in no acute distress. HEAD AND NECK: Unremarkable. HEART: Regular rate and rhythm without any murmurs, rubs or gallops. LUNGS: Decreased breath sounds bilaterally with mild end-expiratory wheezing. ABDOMEN: Soft, nontender, nondistended. EXTREMITIES: No clubbing, cyanosis or edema. NEUROLOGIC: No focal deficits. MUSCULOSKELETAL: No trauma. DIAGNOSTIC STUDIES: Cardiac enzymes negative x 3, hemoglobin and platelets within normal limits. Creatinine within normal limits. LDL 159 and HDL 40. Chest x-ray does not reveal any acute pathology. EKG demonstrates sinus rhythm without any acute ST or T-wave changes. IMPRESSION: 1. Atypical chest pain in a patient with multiple risk factors. 2. Hypertension. 3. Dyslipidemia. RECOMMENDATIONS: The patient is currently low risk with negative enzymes and an EKG. She has no further chest pain. I discussed with the patient that we will obtain an outpatient stress testing and she will follow up in the office after her stress testing. We discussed with her extensively about smoking cessation and she will also be discharged with nicotine patch and PPI for gastroesophageal reflux disease symptoms. Thank you for this consultation. TRUPTI HILL MD DR: CESAR/rene JOB#: [id number] / [id number]
[2017-07-30] MEDS ORDERED: hydrOXYzine HCL 25 MG TABLET PO SCH (21:00)
[2017-07-30] MEDS ORDERED: traZODone 100 MG TABLET. PO SCH (21:00)
--- NOTE | 2017-07-30 21:20 | SSS ---
ADMIT DATE: 07/30/2017 SHORT STAY SUMMARY DISCHARGE DIAGNOSES: 1. Chest pain, atypical, noncardiac. 2. Tobacco use disorder. 3. Gastroesophageal reflux disease. 4. Chronic obstructive pulmonary disease. 5. Hypertension. 6. Questionable coronary artery disease. HISTORY OF PRESENT ILLNESS: This is a 62-year-old female with history of hypertension, COPD, who was brought in by EMS because she was watching TV, she had sharp pains in her chest. She took 1 nitroglycerin at home, which did not help. She was sweaty or short of breath, and was a little dizzy and then called the ambulance. PAST MEDICAL HISTORY: Coronary artery disease, COPD, hypertension, remote history of heroin addiction, methamphetamine addiction, also tobacco use disorder. She quit for 10-11 years, but started back up in 2016 after her . She had 2-pack per day history almost since the age of 5, believe it or not. SOCIAL HISTORY: Moved here from [place]. She lives with her brother. She was on disability. IMMUNIZATIONS: Did get a flu shot this year. No pneumonia shot. FAMILY HISTORY: Father of multiple sclerosis. Sister of cancer at age 24. 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 REVIEW OF SYSTEMS: Positive for some GERD; shortness of breath with exertion, otherwise as per HPI. OBJECTIVE: VITAL SIGNS: Blood pressure 122/81, pulse 90, respirations 24, pulse ox 93% on room air. She also is 97% on 2 liters. HEENT: The patient's hearing is normal. Eyes were clear. Nose patent. Throat clear. She is edentulous. LUNGS: Clear to auscultation. CARDIOVASCULAR: Regular rhythm and rate without murmur. ABDOMEN: Soft, nontender. EXTREMITIES: Without edema. LABORATORY DATA: Troponins negative. Cholesterol 232, HDL ____. CBC normal. ASSESSMENT: 1. Chest pain, atypical, myocardial ruled out. 2. Chronic obstructive pulmonary disease. 3. Tobacco use disorder. 4. Remote history of heroin and methamphetamine abuse. 5. Borderline hypoxia secondary to chronic obstructive pulmonary disease. 6. Hypertension. 7. Health maintenance, has had the flu shot. The patient was seen by Cardiology, will have an outpatient stress test. So, I have encouraged her to quit smoking. We will try with nicotine patches, refilled. Started on Lipitor 20, Nexium 20, and nicotine patch 21. She will follow up with her new doctor, Dr. Rushing. DWAYNE MURCIA DO DR: BUSHRA/rene JOB#: [id number] / [id number] neli Rushing Dr,
== END 2017-07-30 16:10 | disposition home or self-care (01) ==
LOC: ER 15:30 → 1 SOUTH 18:02
PROVIDERS: ADMIT Family Medicine; ATTEND Family Medicine
DX: R07.89 Other chest pain (principal); F17.210 Nicotine dependence, cigarettes, uncomplicated; K21.9 Gastro-esophageal reflux disease without esophagitis; J44.9 Chronic obstructive pulmonary disease, unspecified; I10 Essential (primary) hypertension; E78.5 Hyperlipidemia, unspecified; I25.10 Atherosclerotic heart disease of native coronary artery without angina pectoris; Z82.0 Family history of epilepsy and other diseases of the nervous system; Z80.9 Family history of malignant neoplasm, unspecified; Z90.710 Acquired absence of both cervix and uterus
CPT/HCPCS: 36415; 71045; 80053; 80061; 82553; 83690; 83735; 83880; 84443; 84484; 85025; 85610; 93005; 94640; 99406; G0378; G0379; J7613; J7626; 99285-25

== ENCOUNTER 2017-08-07 16:09 | Inpatient (IN) | payer MEDICARE ==
[~2017-08-07] VITALS: Ht 154.9 cm; Wt 66.1 kg
[~2017-08-07 16:09] MED LIST changes: +ATOR20TA PO; +CARV6.252 PO; +ESOM20CA PO; +FURO40TA4 PO; +HYDR25TA PO; +LISI-338 PO; +NICO1PAT21 TP; +NITR0.4T22 SL; +POTA20TA4 PO; +SERT100T PO; +TRAZ-90 PO
[2017-08-07] MEDS ORDERED: 0.9 % SODIUM CHLORIDE 10 ML DISP.SYRIN. IV PRN (16:30)
[2017-08-07] MEDS ORDERED: IPRATRPIUM/ALBUTEROL 0.5/2.5MG 3 ML NEBU. NEB ONE (16:30)
[2017-08-07] MEDS ORDERED: methylPREDNISolone SOD SUCC PF 125 MG/2 ML VIAL. IV ONE (16:30)
--- NOTE | 2017-08-07 16:52 | RAD ---
Indication: Shortness of breath with cough Technique: Portable AP chest x-ray Comparison: 07/29/2017. Findings: Heart is normal in size. Lungs are clear. No pneumothorax or effusion. Visualized bony thorax is within normal limits. Impression: No acute cardiopulmonary process.
[2017-08-07 17:03] LABS: BASO % 0 % (0-3); EOS # 0.1 x10^3/uL (0.0-0.7); EOS % 2 % (0-3); HEMATOCRIT 38.4 % (36.0-47.0); LYMPH # 1.5 x10^3/uL (1.0-4.8); LYMPH % 17 % (24-48); MEAN CORPUSCULAR HEMOGLOBIN 31 pg (25-35); MEAN CORPUSCULAR HGB CONC 34 g/dL (31-37); MEAN CORPUSCULAR VOLUME 92 fL (79-100); MONO % 11 % (0-9); NEUT # 6.3 x10^3uL (1.8-7.7); NEUT % 70 % (31-73); PLATELET COUNT 147 x10^3/uL (140-400); RED BLOOD COUNT 4.18 x10^6/uL (3.50-5.40); RED CELL DISTRIBUTION WIDTH 14.3 % (11.5-14.5)
[2017-08-07 17:23] LABS: ALBUMIN 2.6 g/dL (3.4-5.0); ALBUMIN/GLOBULIN RATIO 0.7 (1.0-1.7); CALCIUM 8.2 mg/dL (8.5-10.1); CREATININE 1.6 mg/dL (0.6-1.0); GFR 32.7; POTASSIUM 3.8 mmol/L (3.5-5.1); TOTAL BILIRUBIN 0.2 mg/dL (0.2-1.0); TOTAL PROTEIN 6.4 g/dL (6.4-8.2)
[2017-08-07 17:28] LABS: INFLUENZA A PATIENT NEGATIVE (NEGATIVE); INFLUENZA B PATIENT NEGATIVE (NEGATIVE)
--- NOTE | 2017-08-07 17:34 | PHYS DOC ---
Past History Past Medical History: CAD, COPD, Hypertension Past Surgical History: Cholecystectomy, Hysterectomy, Tonsillectomy Smoking: Cigarettes, Greater than 1 pack/day Alcohol Use: Occasionally Drug Use: None Adult General Chief Complaint Chief Complaint: SHORTNESS OF BREATH HPI HPI 62-year-old female patient with history of COPD without home oxygen and states she was admitted about 2 weeks ago with shortness of breath and discharged home 1 week ago. Patient complaining of constant vomiting for one day after discharge and shortness of breath and productive cough with green sputum and fever and not feeling good. Patient complaining of discomfort feeling in her chest during episodes of cough. Patient states she smokes less than one pack of cigarettes/day and admitted to smoke weed. Review of Systems Review of Systems Constitutional: Positive fever and chills Eyes: Denies change in visual acuity, redness, or eye pain [] HENT: Nasal congestion Respiratory: Cough and shortness of breaths Cardiovascular: No additional information not addressed in HPI [] GI: Denies abdominal pain, nausea, bloody stools or diarrhea and reports vomiting [] : Denies dysuria or hematuria [] Musculoskeletal: Denies back pain or joint pain [] Integument: Denies rash or skin lesions [] Neurologic: Denies headache, focal weakness or sensory changes [] Endocrine: Denies polyuria or polydipsia [] All other systems were reviewed and found to be within normal limits, except as documented in this note. Current Medications Current Medications Current Medications Medications (Trade) Dose Ordered Sig/Joseph Start Time Stop Time Status Last Admin Dose Admin Albuterol/ Ipratropium (Duoneb) 3 ml 1X ONCE 08/07/17 16:30 08/07/17 16:31 DC 08/07/17 17:13 3 ML Methylprednisolone Sodium Succinate (SOLU-Medrol 125MG VIAL) 125 mg 1X ONCE 08/07/17 16:30 08/07/17 16:31 DC 08/07/17 17:13 125 MG Sodium Chloride (Normal Saline Flush) 10 ml QSHIFT PRN 08/07/17 16:30 Allergies Allergies Allergies Coded Allergies Type Severity Reaction Last Updated Verified codeine Allergy Intermediate 07/06/17 Yes Physical Exam Physical Exam Constitutional: Moderate distress, non-toxic appearance, anxious. [] HENT: Normocephalic, atraumatic, bilateral external ears normal, oropharynx moist, no oral exudates, nose normal. [] Eyes: PERRLA, EOMI, conjunctiva normal, no discharge. [] Neck: Normal range of motion, no tenderness, supple, no stridor. [] Cardiovascular:Heart rate regular rhythm, no murmur [] Lungs & Thorax: Decrease of air movement with mild wheezing] Abdomen: Bowel sounds normal, soft, no tenderness, no masses, no pulsatile masses. [] Skin: Warm, dry, no erythema, no rash. [] Back: No tenderness, no CVA tenderness. [] Extremities: No tenderness, no cyanosis, no clubbing, ROM intact, no edema. [] Neurologic: Alert and oriented X 3, normal motor function, normal sensory function, no focal deficits noted. [] Psychologic: Anxious Current Patient Data Vital Signs Vital Signs Date Time Temp Pulse Resp B/P (MAP) Pulse Ox O2 Delivery O2 Flow Rate FiO2 08/07/17 17:17 74 20 116/53 (74) 97 Nasal Cannula 2.0 08/07/17 16:21 98.4 Lab Results Laboratory Tests Test 08/07/17 16:30 08/07/17 16:36 Influenza Type A (Rapid) Negative (NEGATIVE) Influenza Type B (Rapid) Negative (NEGATIVE) White Blood Count 9.0 x10^3/uL (4.0-11.0) Red Blood Count 4.18 x10^6/uL (3.50-5.40) Hemoglobin 13.0 g/dL (12.0-15.5) Hematocrit 38.4 % (36.0-47.0) Mean Corpuscular Volume 92 fL (79-100) Mean Corpuscular Hemoglobin 31 pg (25-35) Mean Corpuscular Hemoglobin Concent 34 g/dL (31-37) Red Cell Distribution Width 14.3 % (11.5-14.5) Platelet Count 147 x10^3/uL (140-400) Neutrophils (%) (Auto) 70 % (31-73) Lymphocytes (%) (Auto) 17 % (24-48) L Monocytes (%) (Auto) 11 % (0-9) H Eosinophils (%) (Auto) 2 % (0-3) Basophils (%) (Auto) 0 % (0-3) Neutrophils # (Auto) 6.3 x10^3uL (1.8-7.7) Lymphocytes # (Auto) 1.5 x10^3/uL (1.0-4.8) Monocytes # (Auto) 1.0 x10^3/uL (0.0-1.1) Eosinophils # (Auto) 0.1 x10^3/uL (0.0-0.7) Basophils # (Auto) 0.0 x10^3/uL (0.0-0.2) Prothrombin Time 10.6 SEC (9.4-11.4) Prothrombin Time INR 1.0 (0.9-1.1) Sodium Level 140 mmol/L (136-145) Potassium Level 3.8 mmol/L (3.5-5.1) Chloride Level 104 mmol/L (98-107) Carbon Dioxide Level 27 mmol/L (21-32) Anion Gap 9 (6-14) Blood Urea Nitrogen 19 mg/dL (7-20) Creatinine 1.6 mg/dL (0.6-1.0) H Estimated GFR (Cockcroft-Gault) 32.7 BUN/Creatinine Ratio 12 (6-20) Glucose Level 127 mg/dL (70-99) H Lactic Acid Level 0.7 mmol/L (0.4-2.0) Calcium Level 8.2 mg/dL (8.5-10.1) L Total Bilirubin 0.2 mg/dL (0.2-1.0) Aspartate Amino Transferase (AST) 16 U/L (15-37) Alanine Aminotransferase (ALT) 18 U/L (14-59) Alkaline Phosphatase 104 U/L (46-116) Creatine Kinase 16 U/L (26-192) L Creatine Kinase MB (Mass) 0.5 ng/mL (0.0-3.6) Creatine Kinase MB Relative Index 3.1 % (0-4) Troponin I Quantitative < 0.017 ng/mL (0-0.055) HX-Geo-H-Type Natriuretic Peptide 1046 pg/mL (0-124) H Total Protein 6.4 g/dL (6.4-8.2) Albumin 2.6 g/dL (3.4-5.0) L Albumin/Globulin Ratio 0.7 (1.0-1.7) L EKG EKG [EKG interpreted by me. EKG at 1646 showed normal sinus rhythm at rate of 79, poor wave arthritis in anteroseptal leads, no acute ST and T wave abnormality] Radiology/Procedures Radiology/Procedures [] [address] [place] [id number] IMAGING REPORT Signed PATIENT: ABELARDO SWANSON ACCOUNT: [id number] : 1955 LOCATION: ER AGE: 62 SEX: F EXAM STATUS: REG ER ORD. PHYSICIAN: PAUL PURVIS MD REASON: shortness of breath PROCEDURE: PORTABLE CHEST 1V Indication: Shortness of breath with cough Technique: Portable AP chest x-ray Comparison: 07/29/2017. Findings: Heart is normal in size. Lungs are clear. No pneumothorax or effusion. Visualized bony thorax is within normal limits. Impression: No acute cardiopulmonary process. DICTATED AND SIGNED BY: LELAND SWANSON DO DATE: 08/07/171646 CC: PAUL PURVIS MD; NON,STAFF ~ Course & Med Decision Making Course & Med Decision Making Pertinent Labs and Imaging studies reviewed. (See chart for details) Evaluation of patient in ER showed 62-year-old female patient with recent hospitalization and history of COPD and currently a smoker complaining of increasing shortness of breath after discharge from hospital. Patient had O2 sat of 90% at rest that improved with nasal cannula oxygen. Patient had decrease of air movement without fever. Patient had blood pressure of 90s at arrival to ER that improved with IV fluid. Patient did not have sign of sepsis. Chest x-ray did not show infiltration. Plan to admit patient with diagnosis of COPD exacerbation. Dr. Lopez accepted admission at 1741. [] Dragon Disclaimer Dragon Disclaimer This electronic medical record was generated, in whole or in part, using a voice recognition dictation system. Departure Departure: Impression: Primary Impression: COPD exacerbation Additional Impressions: Hypoxia Renal insufficiency Tobacco abuse Tobacco abuse counseling Disposition: 09 ADMITTED INPATIENT (At 1742) Admitting Physician: Lorelei Lopez Condition: IMPROVED Referrals: NON,STAFF (PCP) Problem Qualifiers PAUL PURVIS MD Aug 07, 2017 17:34
[2017-08-07] MEDS: IV NORMAL SALINE 1,000ML 1,000 ML IV SCH (17:39)
--- NOTE | 2017-08-07 17:47 | EKG ---
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
[2017-08-07] MEDS ORDERED: cefTRIAXone IV Push 1 GM VIAL. IVP ONE (18:00)
[2017-08-07] MEDS ORDERED: cefTRIAXone IV Push 1 GM VIAL. IVP SCH (18:00)
[2017-08-07 18:25] LABS: BGAS PH 7.32 (7.35-7.45)
[2017-08-07] MEDS: IPRATRPIUM/ALBUTEROL 0.5/2.5MG 3 ML NEBU. NEB SCH (20:25)
[2017-08-07 20:26] VITALS: BP 112/73
[2017-08-07 20:29] VITALS: BP 112/73
[2017-08-07 22:25] VITALS: BP 116/65
[2017-08-07 22:30] LABS: BARBITURATES NEG (NEG); BENZODIAZEPINES NEG (NEG); CANNABINOIDS POS (NEG); COCAINE NEG (NEG); METHADONE NEG (NEG); OPIATES NEG (NEG); PHENCYCLIDINE NEG (NEG)
[2017-08-07 22:37] LABS: AMPHETAMINE/METHAMPHETAMINE NEG (NEG)
[2017-08-08] MEDS: methylPREDNISolone SOD SUCC PF 125 MG/2 ML VIAL. IV SCH ×4 (00:32→21:55)
[2017-08-08 01:31] VITALS: BP 137/72
[2017-08-08] MEDS: IV NORMAL SALINE 1,000ML 1,000 ML IV SCH ×2 (04:14→16:27)
[2017-08-08 05:18] VITALS: BP 136/67
[2017-08-08] MEDS: IPRATRPIUM/ALBUTEROL 0.5/2.5MG 3 ML NEBU. NEB SCH ×3 (05:33→14:35)
[2017-08-08] MEDS: LISINOPRIL 5 MG TABLET. PO SCH (08:57)
[2017-08-08] MEDS: POTASSIUM CHLORIDE 20 MEQ TABLET.ER. PO SCH (08:57)
[2017-08-08] MEDS: ATORVASTATIN CALCIUM 20 MG TABLET PO SCH (08:57)
[2017-08-08] MEDS: NICOTINE 21MG PATCH. TD SCH (08:57)
[2017-08-08] MEDS: CARVEDILOL 6.25 MG TABLET PO SCH ×2 (08:58→16:26)
[2017-08-08] MEDS: PANTOPRAZOLE 40 MG TABLET. PO SCH (08:58)
[2017-08-08] MEDS: SERTRALINE 100 MG TABLET. PO SCH (08:58)
[2017-08-08] MEDS ORDERED: FUROSEMIDE 40 MG TABLET PO SCH (09:00)
[2017-08-08] MEDS: cefTRIAXone IV Push 1 GM VIAL. IVP SCH (10:56)
[2017-08-08 11:08] VITALS: BP 125/63
[2017-08-08] MEDS: LACTOBACILLUS RHAMNOSUS GG 1 CAPSULE. PO SCH ×2 (11:34→21:54)
[2017-08-08 15:39] VITALS: BP 149/79
--- NOTE | 2017-08-08 16:14 | RAD ---
Ventilation/perfusion lung scan, 08/08/2017: History: Cough, elevated d-dimer, COPD The ventilation study was performed utilizing 10.7 mCi of xenon-133. Activity in the lungs is heterogeneous. There is moderate patchy retention of activity in the lungs on the washout phase compatible with obstructive pulmonary disease. Perfusion imaging was performed utilizing 5.5 mCi of technetium 99m MAA. No significant unmatched or segmental perfusion defects are seen. IMPRESSION: 1. Abnormal ventilation study compatible with COPD. 2. There are no VQ findings to suggest pulmonary emboli.
[2017-08-08 20:03] VITALS: BP 161/83
--- NOTE | 2017-08-08 21:43 | HP ---
ADMIT DATE: 08/08/2017 REASON FOR ADMISSION: Chest pain. HISTORY OF PRESENT ILLNESS: This is a 62-year-old female who was seen on 08/08/2017 in the Intensive Care Unit. She reports having a heavy feeling on her chest, coughing up copious amounts of sputum without fever. She had recently been in the hospital for chest pain and [place] was ruled out. She also reports some shortness of breath on exertion, does not use oxygen at home. PAST MEDICAL HISTORY: Coronary artery disease, COPD, hypertension, remote history of heroin addiction and methamphetamine addiction, tobacco use disorder. SOCIAL HISTORY: The patient quit for 10-11 years, was started work back up in 2016 after her . She had previously a 2-pack-year history, almost since age of 5. She currently smokes one-half a pack per day. She is moved here from [place]. She lives with her brother. IMMUNIZATIONS: She did get the flu shot and not sure about the pneumonia shot during her last admission. MEDICATIONS: Reviewed and are available on the MAR. ALLERGIES: CODEINE. REVIEW OF SYSTEMS: Positive for heavy feeling on her chest, severe coughing and sputum production and shortness of breath with exertion. This was also present on a previous admission with thick sputum production. OBJECTIVE: VITAL SIGNS: Blood pressure is 125/63, pulse 84, temperature 98.3, pulse ox 94% on 2 liters, height 61 inches, weight 145.8 pounds. GENERAL: A 62-year-old female who does not appear in distress at rest. HEENT: Hearing is normal. Eyes are clear. Nose is patent. Throat is clear. She has postnasal drip in the posterior pharynx, green sputum noted in cup. LUNGS: With coarse breath sounds and wheezes. CARDIOVASCULAR: Regular rhythm and rate. ABDOMEN: Soft, nontender. EXTREMITIES: Without edema. LABORATORY DATA: Normal CBC. Strep screen is negative. Influenza is negative. Drug screen is positive for cannabinoids. Creatinine is 1.6, BNP 1046. Troponin x 1 is negative. ABG: Very slightly acidotic, otherwise normal. D-dimer was 0.80. V/Q scan: No findings suggestive of pulmonary emboli, but positive for COPD. ASSESSMENT: 1. Acute bronchitis. 2. Acute exacerbation of chronic obstructive pulmonary disease. 3. Tobacco use disorder. 4. Acute hypoxic respiratory failure. Initial saturation was 90% on room air. 5. Remote history of heroin and methamphetamine abuse. 6. Recent admission for chest pain. PLAN: Breathing treatments, steroids, and IV antibiotics, IV ceftriaxone. DWAYNE MURCIA DO DR: BUSHRA/rene JOB#: [id number] / [id number]
[2017-08-08] MEDS: hydrOXYzine HCL 25 MG TABLET PO SCH (21:54)
[2017-08-08 22:21] VITALS: BP 135/50
[2017-08-09 03:00] VITALS: BP 165/65
[2017-08-09] MEDS ORDERED: IV NORMAL SALINE 1,000ML 1,000 ML IV SCH (04:30)
[2017-08-09] MEDS: methylPREDNISolone SOD SUCC PF 125 MG/2 ML VIAL. IV SCH ×3 (05:42→21:20)
[2017-08-09 06:56] LABS: BASO % 0 % (0-3); EOS % 0 % (0-3); HEMOGLOBIN 12.7 g/dL (12.0-15.5); LYMPH # 1.1 x10^3/uL (1.0-4.8); LYMPH % 9 % (24-48); MEAN CORPUSCULAR HEMOGLOBIN 31 pg (25-35); MEAN CORPUSCULAR HGB CONC 33 g/dL (31-37); MEAN CORPUSCULAR VOLUME 92 fL (79-100); MONO # 0.8 x10^3/uL (0.0-1.1); MONO % 7 % (0-9); NEUT # 9.5 x10^3uL (1.8-7.7); NEUT % 84 % (31-73); PLATELET COUNT 178 x10^3/uL (140-400); RED BLOOD COUNT 4.14 x10^6/uL (3.50-5.40); RED CELL DISTRIBUTION WIDTH 14.6 % (11.5-14.5); WHITE BLOOD COUNT 11.3 x10^3/uL (4.0-11.0)
[2017-08-09 07:22] LABS: ALBUMIN 2.4 g/dL (3.4-5.0); ALBUMIN/GLOBULIN RATIO 0.6 (1.0-1.7); CREATININE 1.1 mg/dL (0.6-1.0); GFR 50.3; MAGNESIUM 1.6 mg/dL (1.8-2.4); POTASSIUM 3.5 mmol/L (3.5-5.1); TOTAL BILIRUBIN 0.2 mg/dL (0.2-1.0); TOTAL PROTEIN 6.3 g/dL (6.4-8.2)
[2017-08-09] MEDS: NICOTINE 21MG PATCH. TD SCH (07:37)
[2017-08-09] MEDS: CARVEDILOL 6.25 MG TABLET PO SCH ×2 (07:38→17:12)
[2017-08-09] MEDS: ATORVASTATIN CALCIUM 20 MG TABLET PO SCH (07:38)
[2017-08-09] MEDS: PANTOPRAZOLE 40 MG TABLET. PO SCH (07:38)
[2017-08-09] MEDS: POTASSIUM CHLORIDE 20 MEQ TABLET.ER. PO SCH (07:38)
[2017-08-09] MEDS: LACTOBACILLUS RHAMNOSUS GG 1 CAPSULE. PO SCH ×2 (07:38→21:17)
[2017-08-09] MEDS: SERTRALINE 100 MG TABLET. PO SCH (07:38)
[2017-08-09] MEDS: LISINOPRIL 5 MG TABLET. PO SCH (07:39)
[2017-08-09 08:00] VITALS: BP 147/62
[2017-08-09 08:15] LABS: % BANDS 8 % (0-9); % LYMPHS 17 % (24-48); % MONOS 2 % (0-10); % SEGS 72 % (35-66)
[2017-08-09 08:16] LABS: ANISOCYTOSIS SLIGHT; PLT ESTIMATE ADEQUATE (ADEQUATE)
[2017-08-09] MEDS ORDERED: IPRATRPIUM/ALBUTEROL 0.5/2.5MG 3 ML NEBU. NEB ONE (09:00)
--- NOTE | 2017-08-09 09:40 | RAD ---
EXAM: CHEST 1 VIEW History: Increasing shortness of breath COMPARISON: 08/07/2017 TECHNIQUE: Single portable radiograph of the chest FINDINGS: The cardiac silhouette is unremarkable. Minimal prominent appearing bilateral interstitial lung markings. The costophrenic sulci are clear and well demarcated. IMPRESSION: Minimal prominent appearing bilateral interstitial lung markings likely minimal congestive changes.
[2017-08-09] MEDS: cefTRIAXone IV Push 1 GM VIAL. IVP SCH (10:17)
[2017-08-09] MEDS: IPRATRPIUM/ALBUTEROL 0.5/2.5MG 3 ML NEBU. NEB SCH ×3 (11:14→21:54)
[2017-08-09 11:44] VITALS: BP 136/65
--- NOTE | 2017-08-09 11:49 | CARD ---
MR#: [id number] Date of Study: 08/09/2017 Ordering Physician: DWAYNE MURCIA, Referring Physician: VARGHESE GRANDA Tech: Fannie Sethi RDCS APPROVED REPORT EXAM: Two-dimensional and M-mode echocardiogram with Doppler and color Doppler. Other Information Quality : Good INDICATION Dyspnea 2D DIMENSIONS RVDd2.2 (2.9-3.5cm)Left Atrium(2D)3.4 (1.6-4.0cm) IVSd1.0 (0.7-1.1cm)Aortic Root(2D)2.9 (2.0-3.7cm) LVDd5.2 (3.9-5.9cm)LVOT Diameter2.0 (1.8-2.4cm) PWd1.0 (0.7-1.1cm)LVDs3.1 (2.5-4.0cm) FS (%) 30.0 %SV91.3 ml LVEF(%)60.0 (>50%) Aortic Valve AoV Peak Murphy.315.1cm/sAoV VTI69.6cm AO Peak GR.39.7mmHgLVOT Peak Murphy.159.1cm/s LVOT VTI 38.21cmAO Mean GR.20mmHg SUNDEEP (VMAX)1.68rn3XTM (VTI)1.76cm2 AI P 1/2 Lfqe383ja Mitral Valve MV E Irizkjkp703.1cm/sMV DECEL EDRC513xw MV A Upwxqydm29.0cm/sE/A Ratio1.4 Tricuspid Valve TR P. Arqmkfxd838ei/sRAP AXAVVFHI9gwGw TR Peak Gr.31eeFhGQJY99pfTl Pulmonary Vein S1 Yjeyqlve31.6cm/sD2 Hthydcbu255.7cm/s LEFT VENTRICLE The left ventricle is normal size. There is normal left ventricular wall thickness. The left ventricu lar systolic function is normal. The Ejection Fraction is 55-60%. There is normal LV segmental wall m otion. RIGHT VENTRICLE The right ventricle is normal size. The right ventricular systolic function is normal. ATRIA The left atrium size is normal. The right atrium size is normal. The interatrial septum is intact wit h no evidence for an atrial septal defect or patent foramen ovale as noted on 2-D or Doppler imaging. AORTIC VALVE The aortic valve is not well visualized. A bicuspid aortic valve cannot be excluded. Doppler and [place] r Flow revealed moderate aortic regurgitation. Doppler and color-flow analysis revealed mild aortic s tenosis with mean gradient 20 mm Hg. MITRAL VALVE The mitral valve is calcified but opens well. There is no evidence of mitral valve prolapse. There is no mitral valve stenosis. Doppler and Color-flow revealed trace mitral regurgitation. TRICUSPID VALVE The tricuspid valve is normal in structure and function. Doppler and Color Flow revealed trace tricus pid regurgitation. There is mild pulmonary hypertension. The PA pressure was estimated at 38 mmHg. Th ere is no tricuspid valve stenosis. PULMONIC VALVE The pulmonary valve is normal in structure and function. Doppler and Color Flow revealed trace to mil d pulmonic valvular regurgitation. There is no pulmonic valvular stenosis. GREAT VESSELS The aortic root is normal in size. The ascending aorta is mildly dilated at 3.6 cm. The IVC is dilate d. PERICARDIAL EFFUSION There is no evidence of significant pericardial effusion. Critical Notification Critical Value: No <Conclusion> The left ventricular systolic function is normal. The Ejection Fraction is 55-60%. There is normal LV segmental wall motion. Mild aortic stenosis with mean gradient 20 mm Hg. Trace tricuspid regurgitation. The PA pressure was estimated at 38 mmHg. There is no evidence of significant pericardial effusion. Signed by : Jose Cee, Electronically Approved : 08/09/2017 11:49:00
[2017-08-09] MEDS ORDERED: MAGNESIUM SULFATE 2GM 50 ML IV ONE (13:00)
[2017-08-09] MEDS ORDERED: FUROSEMIDE 20 MG/2 ML VIAL IVP ONE (13:15)
[2017-08-09 18:00] VITALS: BP 124/80
[2017-08-09] MEDS ORDERED: MONTELUKAST 10 MG TABLET. PO SCH (21:00)
[2017-08-09] MEDS: hydrOXYzine HCL 25 MG TABLET PO SCH (21:17)
[2017-08-09 23:00] VITALS: BP 132/78
--- NOTE | 2017-08-09 23:19 | PN ---
DATE: 08/09/2017 PROBLEMS: 1. Acute bronchitis. 2. Acute exacerbation of chronic obstructive pulmonary disease. 3. Tobacco use disorder. 4. Acute hypoxic respiratory failure. 5. Remote history of heroin and methamphetamine abuse. 6. Elevated D-dimer. V/Q scan negative for PE. 7. Severe protein calorie malnutrition. 8. Hypomagnesemia. SUBJECTIVE: The patient is a 62-year-old female who is admitted for acute shortness of breath. She continues to be wheezy, is on IV steroids and antibiotics. Her sputum has many white cells and culture is pending. She is still short of breath. OBJECTIVE: VITAL SIGNS: Blood pressure 136/65, respirations 20, pulse 58, O2 sat 95% on 2 liters. The patient is mildly tachypneic at the time of the exam. Her oxygen is off and it is registering about 90%. GENERAL: She was just eating breakfast. HEENT: Nose is congested. Throat clear. NECK: Supple. LUNGS: With bilateral inspiratory and expiratory wheezes. CARDIOVASCULAR: Regular rhythm and rate. ABDOMEN: Soft, nontender. EXTREMITIES: Without edema. LABORATORY DATA: Sodium is 146 this morning, chloride 110, albumin 2.4, magnesium 1.6. Hematology: White cell count up from steroids. Chest x-ray shows some mild pulmonary congestion. PLAN: Small dose of Lasix IV. Echocardiogram. Continue breathing treatments, IV steroids added and Singulair and we will continue to monitor. Her Lasix had been held due to dehydration, but now appears to have a little bit extra fluid on board. DWAYNE MURCIA DO DR: BUSHRA/rene JOB#: [id number] / [id number]
[2017-08-10 03:00] VITALS: BP 139/71
[2017-08-10] MEDS: IPRATRPIUM/ALBUTEROL 0.5/2.5MG 3 ML NEBU. NEB SCH ×2 (05:54→11:44)
[2017-08-10] MEDS: methylPREDNISolone SOD SUCC PF 125 MG/2 ML VIAL. IV SCH ×2 (06:08→14:00)
[2017-08-10 06:52] LABS: BASO % 0 % (0-3); EOS % 0 % (0-3); HEMATOCRIT 37.7 % (36.0-47.0); HEMOGLOBIN 12.8 g/dL (12.0-15.5); LYMPH # 1.3 x10^3/uL (1.0-4.8); LYMPH % 11 % (24-48); MEAN CORPUSCULAR HEMOGLOBIN 31 pg (25-35); MEAN CORPUSCULAR HGB CONC 34 g/dL (31-37); MEAN CORPUSCULAR VOLUME 90 fL (79-100); MONO # 0.8 x10^3/uL (0.0-1.1); MONO % 7 % (0-9); NEUT # 9.8 x10^3uL (1.8-7.7); NEUT % 82 % (31-73); PLATELET COUNT 204 x10^3/uL (140-400); RED BLOOD COUNT 4.17 x10^6/uL (3.50-5.40); RED CELL DISTRIBUTION WIDTH 14.1 % (11.5-14.5); WHITE BLOOD COUNT 11.9 x10^3/uL (4.0-11.0)
[2017-08-10 06:55] LABS: ALBUMIN 2.5 g/dL (3.4-5.0); ALBUMIN/GLOBULIN RATIO 0.7 (1.0-1.7); CALCIUM 8.2 mg/dL (8.5-10.1); CREATININE 1.1 mg/dL (0.6-1.0); GFR 50.3; POTASSIUM 3.3 mmol/L (3.5-5.1); TOTAL BILIRUBIN 0.2 mg/dL (0.2-1.0); TOTAL PROTEIN 6.2 g/dL (6.4-8.2)
[2017-08-10] MEDS ORDERED: POTASSIUM CHLORIDE 20 MEQ TABLET.ER. PO ONE ×2 (07:11→07:30)
[2017-08-10] MEDS: ATORVASTATIN CALCIUM 20 MG TABLET PO SCH (07:25)
[2017-08-10] MEDS: PANTOPRAZOLE 40 MG TABLET. PO SCH (07:25)
[2017-08-10] MEDS: NICOTINE 21MG PATCH. TD SCH (07:25)
[2017-08-10] MEDS: POTASSIUM CHLORIDE 20 MEQ TABLET.ER. PO SCH (07:25)
[2017-08-10] MEDS: LACTOBACILLUS RHAMNOSUS GG 1 CAPSULE. PO SCH (07:26)
[2017-08-10] MEDS: CARVEDILOL 6.25 MG TABLET PO SCH (07:26)
[2017-08-10] MEDS: LISINOPRIL 5 MG TABLET. PO SCH (07:26)
[2017-08-10] MEDS: SERTRALINE 100 MG TABLET. PO SCH (07:26)
[2017-08-10 08:51] VITALS: BP 145/76
[2017-08-10] MEDS: cefTRIAXone IV Push 1 GM VIAL. IVP SCH (12:40)
[2017-08-10] MEDS ORDERED: PRED-220 PO (12:59)
[2017-08-10] MEDS ORDERED: MONT10TA9 PO (12:59)
[2017-08-10] MEDS ORDERED: DOXY100C14 PO (12:59)
[2017-08-10] MEDS ORDERED: LACT1CAP19 PO (12:59)
--- NOTE | 2017-08-10 13:06 | PDOC3 ---
Discharge Summary Visit Information Date of Admission: Aug 07, 2017 Date of Discharge: Aug 10, 2017 Final Diagnosis Problems Medical Problems: (1) COPD exacerbation Status: Acute (2) Hypoxia Status: Acute (3) Renal insufficiency Status: Acute (4) Tobacco abuse Status: Acute (5) Tobacco abuse counseling Status: Acute : 1. Acute bronchitis. 2. Acute exacerbation of chronic obstructive pulmonary disease. 3. Tobacco use disorder. 4. Acute hypoxic respiratory failure. 5. Remote history of heroin and methamphetamine abuse. 6. Elevated D-dimer. V/Q scan negative for PE. 7. Severe protein calorie malnutrition. 8. Hypomagnesemia. Problems: Brief Hospital Course Allergies Allergies Coded Allergies Type Severity Reaction Last Updated Verified codeine Allergy Intermediate 07/06/17 Yes Vital Signs Vital Signs Date Time Temp Pulse Resp B/P (MAP) Pulse Ox O2 Delivery O2 Flow Rate FiO2 08/10/17 11:44 92 Room Air 08/10/17 08:51 58 20 145/76 (99) 08/10/17 08:00 2.0 08/09/17 23:00 98.2 Lab Results Laboratory Tests Test 08/09/17 05:46 08/10/17 05:48 White Blood Count 11.3 x10^3/uL (4.0-11.0) 11.9 x10^3/uL (4.0-11.0) Red Blood Count 4.14 x10^6/uL (3.50-5.40) 4.17 x10^6/uL (3.50-5.40) Hemoglobin 12.7 g/dL (12.0-15.5) 12.8 g/dL (12.0-15.5) Hematocrit 38.0 % (36.0-47.0) 37.7 % (36.0-47.0) Mean Corpuscular Volume 92 fL (79-100) 90 fL (79-100) Mean Corpuscular Hemoglobin 31 pg (25-35) 31 pg (25-35) Mean Corpuscular Hemoglobin Concent 33 g/dL (31-37) 34 g/dL (31-37) Red Cell Distribution Width 14.6 % (11.5-14.5) 14.1 % (11.5-14.5) Platelet Count 178 x10^3/uL (140-400) 204 x10^3/uL (140-400) Neutrophils (%) (Auto) 84 % (31-73) 82 % (31-73) Lymphocytes (%) (Auto) 9 % (24-48) 11 % (24-48) Monocytes (%) (Auto) 7 % (0-9) 7 % (0-9) Eosinophils (%) (Auto) 0 % (0-3) 0 % (0-3) Basophils (%) (Auto) 0 % (0-3) 0 % (0-3) Neutrophils # (Auto) 9.5 x10^3uL (1.8-7.7) 9.8 x10^3uL (1.8-7.7) Lymphocytes # (Auto) 1.1 x10^3/uL (1.0-4.8) 1.3 x10^3/uL (1.0-4.8) Monocytes # (Auto) 0.8 x10^3/uL (0.0-1.1) 0.8 x10^3/uL (0.0-1.1) Eosinophils # (Auto) 0.0 x10^3/uL (0.0-0.7) 0.0 x10^3/uL (0.0-0.7) Basophils # (Auto) 0.0 x10^3/uL (0.0-0.2) 0.0 x10^3/uL (0.0-0.2) Segmented Neutrophils % 72 % (35-66) Band Neutrophils % 8 % (0-9) Lymphocytes % 17 % (24-48) Monocytes % 2 % (0-10) Platelet Estimate Adequate (ADEQUATE) Anisocytosis Slight Sodium Level 146 mmol/L (136-145) 143 mmol/L (136-145) Potassium Level 3.5 mmol/L (3.5-5.1) 3.3 mmol/L (3.5-5.1) Chloride Level 110 mmol/L (98-107) 104 mmol/L (98-107) Carbon Dioxide Level 27 mmol/L (21-32) 30 mmol/L (21-32) Anion Gap 9 (6-14) 9 (6-14) Blood Urea Nitrogen 15 mg/dL (7-20) 17 mg/dL (7-20) Creatinine 1.1 mg/dL (0.6-1.0) 1.1 mg/dL (0.6-1.0) Estimated GFR (Cockcroft-Gault) 50.3 50.3 BUN/Creatinine Ratio 14 (6-20) 15 (6-20) Glucose Level 132 mg/dL (70-99) 127 mg/dL (70-99) Calcium Level 8.0 mg/dL (8.5-10.1) 8.2 mg/dL (8.5-10.1) Magnesium Level 1.6 mg/dL (1.8-2.4) 2.0 mg/dL (1.8-2.4) Total Bilirubin 0.2 mg/dL (0.2-1.0) 0.2 mg/dL (0.2-1.0) Aspartate Amino Transf (AST/SGOT) 19 U/L (15-37) 24 U/L (15-37) Alanine Aminotransferase (ALT/SGPT) 23 U/L (14-59) 33 U/L (14-59) Alkaline Phosphatase 92 U/L (46-116) 96 U/L (46-116) Total Protein 6.3 g/dL (6.4-8.2) 6.2 g/dL (6.4-8.2) Albumin 2.4 g/dL (3.4-5.0) 2.5 g/dL (3.4-5.0) Albumin/Globulin Ratio 0.6 (1.0-1.7) 0.7 (1.0-1.7) Brief Hospital Course Ms. Burch is a 62 old [sex] who presented with [ ] HISTORY OF PRESENT ILLNESS: This is a 62-year-old female who was seen on 08/08/2017 in the Intensive Care Unit. She reports having a heavy feeling on her chest, coughing up copious amounts of sputum without fever. She had recently been in the hospital for chest pain and GA was ruled out. She also reports some shortness of breath on exertion, does not use oxygen at home. SHE WAS TREATED WITH IV ANTIBIOTICS, STEROIDS AND BREATHING TREATMENTS,. SHE DID NOT PASS HER 6 MINUTE WALK AND WILL HAVE TO BE DISCHARGED ON OXYGEN WELL A NEBULIZER. SHE IS MOTIVATED TO QUIT SMOKING AND REQUESTED CHANTIX WHICH HELPED HER BEFORE SO SHE WILL BE GIVEN A RX FOR THAT. Discharge Information Condition at Discharge: Improved Disposition/Orders: D/C to Home Dischare Medications Current Medications Sodium Chloride (Normal Saline Flush) 10 ml QSHIFT PRN IV AFTER MEDS AND BLOOD DRAWS; Start 08/07/17 at 16:30 Albuterol/ Ipratropium (Duoneb) 3 ml 1X ONCE NEB Last administered on at 17:13; Start 08/07/17 at 16:30; Stop 08/07/17 at 16:31; Status DC Methylprednisolone Sodium Succinate (SOLU-Medrol 125MG VIAL) 125 mg 1X ONCE IV Last administered on 08/07/17at 17:13; Start 08/07/17 at 16:30; Stop 08/07/17 at 16:31; Status DC Sodium Chloride 1,000 ml @ 100 mls/hr Q10H IV Last administered on 08/08/17at 16 :27; Start 08/07/17 at 17:39; Stop 08/08/17 at 17:38; Status DC Albuterol/ Ipratropium (Duoneb) 3 ml RTQID NEB Last administered on 08/08/17at 14 :35; Start 08/07/17 at 20:00; Stop 08/08/17 at 19:59; Status DC Methylprednisolone Sodium Succinate (SOLU-Medrol 125MG VIAL) 62.5 mg Q8HRS IV Last administered on 08/10/17at 06:08; Start 08/07/17 at 22:00 Ceftriaxone Sodium 1 gm/ Sodium Chloride 50 ml @ 100 mls/hr 1X ONCE IV ; Start 08/07/17 at 18:00; Stop 08/07/17 at 18:29; Status Cancel Ceftriaxone Sodium (Rocephin) 1 gm Q24H IVP ; Start 08/07/17 at 18:00; Status Cancel Ceftriaxone Sodium (Rocephin) 1 gm 1X ONCE IVP Last administered on 08/07/17at 18:00; Start 08/07/17 at 18:00; Stop 08/07/17 at 18:01; Status DC Atorvastatin Calcium (Lipitor) 20 mg DAILY PO Last administered on 08/10/17at 07: 25; Start 08/08/17 at 09:00 Carvedilol (Coreg) 6.25 mg BIDWMEALS PO Last administered on 08/10/17at 07:26; Start 08/08/17 at 09:00 Furosemide (Lasix) 40 mg DAILY PO Last administered on 08/08/17 08:57; Start at 09:00; Status Future Hold Hydroxyzine HCl (Atarax) 25 mg HS PO Last administered on 08/09/17 21:17; Start 08/08/17 at 21:00 Lisinopril (Prinivil) 5 mg DAILY PO Last administered on 08/10/17 07:26; Start 08/08/17 at 09:00 Nicotine (Nicoderm Cq 21mg) 1 patch DAILY TD Last administered on 08/10/17 07: 25; Start 08/08/17 at 09:00 Potassium Chloride (Klor-Con) 20 meq DAILY PO Last administered on 08/10/17 07: 25; Start 08/08/17 at 09:00 Sertraline HCl (Zoloft) 100 mg DAILY PO Last administered on 08/10/17 07:26; Start 08/08/17 at 09:00 Pantoprazole Sodium (Protonix) 40 mg DAILYAC PO Last administered on 08/10/17 07:25; Start 08/08/17 at 09:00 Ceftriaxone Sodium 1 gm/ Sodium Chloride 50 ml @ 100 mls/hr Q24H IV ; Start 08/08/17 at 10:45; Status UNV Guaifenesin (Mucinex Er) 600 mg BID PO Last administered on 08/10/17 07:25; Start 08/08/17 at 10:45 Ceftriaxone Sodium (Rocephin) 1 gm Q24H IVP Last administered on 08/10/17at 12:40 ; Start 08/08/17 at 11:00 Lactobacillus Rhamnosus (Culturelle) 1 cap BID PO Last administered on 07:26; Start 08/08/17 at 11:00 Sodium Chloride 1,000 ml @ 100 mls/hr Q10H IV Last administered on 08/09/17 04 :23; Start 08/09/17 at 04:30; Stop 08/09/17 at 08:43; Status DC Albuterol/ Ipratropium (Duoneb) 3 ml 1X ONCE NEB Last administered on 10:18; Start 08/09/17 at 09:00; Stop 08/09/17 at 09:01; Status DC Albuterol/ Ipratropium (Duoneb) 3 ml RTQID NEB Last administered on 08/10/17at 11 :44; Start 08/09/17 at 12:00 Montelukast Sodium (Singulair) 10 mg QHS PO Last administered on 08/09/17at 21:17 ; Start 08/09/17 at 21:00 Magnesium Sulfate 50 ml @ 25 mls/hr 1X ONCE IV Last administered on 08/09/17at 14:01; Start 08/09/17 at 13:00; Stop 08/09/17 at 14:59; Status DC Furosemide (Lasix) 20 mg 1X ONCE IVP Last administered on 08/09/17at 14:02; Start 08/09/17 at 13:15; Stop 08/09/17 at 13:16; Status DC Potassium Chloride (Klor-Con) 20 meq STK-MED ONCE PO ; Start 08/10/17 at 07:11; Stop 08/10/17 at 07:12; Status DC Potassium Chloride (Klor-Con) 20 meq 1X ONCE PO Last administered on 08/10/17at 07:27; Start 08/10/17 at 07:30; Stop 08/10/17 at 07:31; Status DC Active Scripts Active Lipitor (Atorvastatin Calcium) 20 Mg Tablet 1 Tab PO DAILY NICODERM CQ 21mg (Nicotine) 1 Each Patch.td24 1 Patch TP DAILY Nexium Capsule (Esomeprazole Magnesium) 20 Mg Capsule.dr 1 Cap PO DAILY Proair Hfa Inhaler (Albuterol Sulfate) 8.5 Gm Hfa.aer.ad 2 Puff INH PRN Q6HRS PRN Reported Furosemide 40 Mg Tablet 40 Mg PO DAILY LAST DOSE GIVEN: DATE: TIME: NEXT DOSE DUE: DATE: TIME: Carvedilol 6.25 Mg Tablet 6.25 Mg PO BIDWMEALS LAST DOSE GIVEN: DATE: TIME: NEXT DOSE DUE: DATE: TIME: Zoloft (Sertraline Hcl) 100 Mg Tablet 100 Mg PO DAILY LAST DOSE GIVEN: DATE: TIME: NEXT DOSE DUE: DATE: TIME: NITROGLYCERIN SubLingual (Nitroglycerin) 0.4 Mg Tab.subl 0.4 Mg SL PRN Q5MIN PRN LAST DOSE GIVEN: DATE: TIME: NEXT DOSE DUE: DATE: TIME: Klor-Con M20 (Potassium Chloride) 20 Meq Tab.er.prt 20 Meq PO DAILY LAST DOSE GIVEN: DATE: TIME: NEXT DOSE DUE: DATE: TIME: Advair 250-50 Diskus (Fluticasone/Salmeterol) 1 Each Disk.w.dev 1 Puff IH BID LAST DOSE GIVEN: DATE: TIME: NEXT DOSE DUE: DATE: TIME: Lisinopril 5 Mg Tablet 5 Mg PO DAILY LAST DOSE GIVEN: DATE: TIME: NEXT DOSE DUE: DATE: TIME: Hydroxyzine Hcl 25 Mg Tablet 25 Mg PO HS LAST DOSE GIVEN: DATE: TIME: NEXT DOSE DUE: DATE: TIME: Trazodone Hcl 100 Mg Tablet 100 Mg PO QHS LAST DOSE GIVEN: DATE: TIME: NEXT DOSE DUE: DATE: TIME: Patient Instructions Patient Instuctions PLEASE SEE [facility] DISCHARGE IN [facility]. DWAYNE MURCIA DO Aug 10, 2017 13:06
[2017-08-10 14:06] VITALS: BP 137/71
== END 2017-08-10 15:40 | disposition home health service (06) | DRG 682 ==
LOC: ER 16:09 → ICU 20:10
PROVIDERS: ADMIT Internal Medicine; ATTEND Internal Medicine
DX: N17.0 Acute kidney failure with tubular necrosis (principal); J96.01 Acute respiratory failure with hypoxia; E43 Unspecified severe protein-calorie malnutrition; J44.0 Chronic obstructive pulmonary disease with (acute) lower respiratory infection; J44.1 Chronic obstructive pulmonary disease with (acute) exacerbation; F11.20 Opioid dependence, uncomplicated; F15.20 Other stimulant dependence, uncomplicated; E83.42 Hypomagnesemia; F12.90 Cannabis use, unspecified, uncomplicated; E86.0 Dehydration; F17.210 Nicotine dependence, cigarettes, uncomplicated; I10 Essential (primary) hypertension; I25.10 Atherosclerotic heart disease of native coronary artery without angina pectoris; J20.9 Acute bronchitis, unspecified; Z79.899 Other long term (current) drug therapy; Z68.27 Body mass index [BMI] 27.0-27.9, adult; Z90.710 Acquired absence of both cervix and uterus; Z88.8 Allergy status to other drugs, medicaments and biological substances; Z90.49 Acquired absence of other specified parts of digestive tract; Z71.6 Tobacco abuse counseling
CPT/HCPCS: 36415; 71045; 78582; 80053; 80307; 82553; 82803; 83605; 83735; 83880; 84484; 85007; 85025; 85379; 85610; 87040; 87070; 87205; 87641; 87804; 87880; 93005; 93306; 94618; 94640; 96374; 96375; A9540; A9558; J0696; J2930; J3475; J7620; 99285-25; G0479; J7030

== ENCOUNTER 2017-08-07 16:14 | Emergency (ER) | payer MEDICARE ==
[~2017-08-07 16:14] MED LIST changes: -SERT100T PO; +SERT20OR PO
[2017-08-07] MEDS ORDERED: IPRATRPIUM/ALBUTEROL 0.5/2.5MG 3 ML NEBU. ONE (17:08)
[2017-08-07] MEDS ORDERED: methylPREDNISolone SOD SUCC PF 125 MG/2 ML VIAL. ONE (17:08)
== END 2017-08-07 16:17 ==
LOC: ER 16:14
DX: R06.02 Shortness of breath (principal); Z53.21 Procedure and treatment not carried out due to patient leaving prior to being seen by health care provider
CPT/HCPCS: 36600; 99281

== ENCOUNTER → 2021-09-23 | Outpatient (CLI) | payer MEDICARE ==
[~2021-09-23] MED LIST changes: +ALBU2.5V8 INH; -ALBU8.5H8 INH; -CARV6.252 PO; +CARV6.2541 PO; +DOXY-181 PO; -DOXY100C2 PO; +DOXY100C3 PO; +LACT1CAP19 PO; -LISI-338 PO; +LISI5TAB15 PO; +MONT10TA80 PO; +POTA-121 PO; -POTA20TA4 PO; +SERT100T PO; -SERT20OR PO; +TRAZ-125 PO; -TRAZ-90 PO
--- NOTE | 2021-09-23 16:22 | RAD ---
PROCEDURE: US BREAST LTD RT, MG DIAGNOSTIC BILAT HISTORY: The patient is 66 years old and is seen for Reason: RIGHT BREAST LUMP, HX CA / Spl. Instruct ions: / History: . COMPARISON: June 02, 2020 ultrasound and mammogram TECHNIQUE: CC and MLO views of both breasts were obtained. Images were processed by the [employer] computer-aided detection system. Ultrasound right breast. DENSITY: There are scattered fibroglandular densities. FINDINGS: Left mammogram: No developing mass, suspicious calcifications or architectural distortion. Right mammogram: Evolving postlumpectomy changes right medial breast. No new suspicious microcatheter dictation, mass or architectural distortion. Right ultrasound: Fluid collection within the right breast 1:00 position 6 cm from the nipple corresp onding with lumpectomy site measures 2.2 x 2.7 x 1.8 cm. IMPRESSION: 1. Benign findings. No evidence of malignancy. 2. Evolving right breast lumpectomy site with postoperative seroma correspond with patient's palpabl e abnormality. Recommend annual screening mammograms per [employer] guidelines. She will be due in one year. BI-RADS category 2 Benign Patient entered into a reminder system for annual screening mammogram. Electronically signed by: Gustavo Grande DO (09/23/2021 4:19 PM) [id number]
== END ==
LOC: MAMMO 14:50
PROVIDERS: ATTEND Family Medicine
DX: N64.89 Other specified disorders of breast (principal); Z85.3 Personal history of malignant neoplasm of breast
CPT/HCPCS: 76642; 77066

== ENCOUNTER 2021-10-28 18:31 | Observation (INO) | payer MEDICARE, OTHER ==
[~2021-10-28] VITALS: Ht 154.9 cm; Wt 63.5 kg
[2021-10-28] MEDS ORDERED: IV NORMAL SALINE 1,000ML 1,000 ML IV ONE ×2 (18:45→21:15)
--- NOTE | 2021-10-28 18:58 | PHYS DOC ---
Past History Past Medical History: CAD, COPD, Hypertension Past Surgical History: Cholecystectomy, Hysterectomy, Tonsillectomy Additional Past Surgical Histo: R breast lumpectomy Smoking: Cigarettes, Greater than 1 pack/day Alcohol Use: None Drug Use: None General Adult EDM: Chief Complaint: ABDOMINAL PAIN HPI: HPI: Patient is a 66-year-old male coming in from home via EMS for generalized abdominal pain for the past 2 days. Patient states to the nurse that she has been using methamphetamines. States she is also having vomiting over the past couple of days, denies any diarrhea. Had a hard bowel movement this morning. Patient is a very poor historian and giving different details to different members of the staff. Review of Systems: Review of Systems: All other systems within normal limits except for as noted in the HPI Current Medications: Current Meds: Current Medications Medications (Trade) Dose Ordered Sig/Joseph Start Time Stop Time Status Last Admin Dose Admin Lorazepam (Ativan Inj) 1 mg 1X ONCE 10/28/21 18:45 10/28/21 18:46 UNV Sodium Chloride 1,000 ml @ 1,000 mls/hr 1X ONCE 10/28/21 18:45 10/28/21 19:44 UNV Allergies: Allergies: Allergies Coded Allergies Type Severity Reaction Last Updated Verified codeine Allergy Intermediate 07/06/17 Yes Physical Exam: PE: Constitutional: Well developed, well nourished, no acute distress, non-toxic appearance. Writhing around in bed. HENT: Normocephalic, atraumatic, bilateral external ears normal, nose normal. [] Eyes: PERRLA, conjunctiva normal, no discharge. [] Neck: No rigidity, supple, no stridor. [] Cardiovascular: Regular rate and rhythm, brisk cap refill [] Lungs & Thorax: Non labored symmetric respirations, no tachypnea or respiratory distress [] Abdomen: Soft, nondistended, tenderness in. Skin: Warm, dry, no erythema, no rash. [] Back: Unremarkable Extremities: No deformities, range of motion grossly intact, no lower extremity edema [] Neurologic: Alert and oriented X 3, no focal deficits noted. [] Psychologic: Anxious Current Patient Data: Vital Signs: Vital Signs Date Time Temp Pulse Resp B/P (MAP) Pulse Ox O2 Delivery O2 Flow Rate FiO2 10/28/21 18:40 98.9 112 20 153/98 (116) 90 Room Air EKG: EKG: Sinus rhythm, heart rate 98 bpm, normal axis, no STEMI, no ectopy. [] Radiology/Procedures: Radiology/Procedures: [address] [id number] IMAGING REPORT Signed PATIENT: ABELARDO SWANSON ACCOUNT: [id number] : 1955 LOCATION: ER AGE: 66 SEX: F EXAM STATUS: REG ER ORD. PHYSICIAN: DIAZ BONNER MD REASON: LUQ pain PROCEDURE: CT ABDOMEN PELVIS WO CONTRAST Abdominal and Pelvis CT, Without Contrast: History: Reason: LUQ pain / Spl. Instructions: NON CONTRAST DUE TO LAB VALUES GFR=26 / History: Comparison: None. Procedure: Axial images are obtained of the abdomen and pelvis, without IV or oral contrast. Oral Contrast: No Findings: Evaluation of solid organs is limited without contrast. There has been prior cholecystectomy. The appendix is normal. There is a mass in the pelvis on left that measures 4.7 x 4.0 cm. There is no fat plane between this mass and the sigmoid colon. The uterus and ovaries are not seen and could be removed. Liver: Normal. Spleen: Normal. Pancreas: Normal. Adrenal Glands: Normal. Kidneys: The left kidney is severely atrophic. Mild prominence of the right renal pelvis is likely an extrarenal pelvis.. There is no free air or free fluid. There is no lymphadenopathy. The urinary bladder appears normal. There is no pericolonic inflammation identified. Impression: Low density mass in the left hemipelvis. This could be arising from the sigmoid colon or could be ovarian in origin. This is suspicious for neoplasm. Correlation with CA-125. End impression PQRS Compliance Statement: One or more of the following individualized dose reduction techniques were utilized for this examination: 1. Automated exposure control 2. Adjustment of the mA and/or kV according to patient size 3. Use of iterative reconstruction technique Electronically signed by: Mechelle Grimm III, MD (10/28/2021 8:55 PM) [facility] DICTATED AND SIGNED BY: MECHELLE GRIMM III, MD DATE: 10/28/212048 CC: DIAZ BONNER MD; OMER MOLINA ~ [] Heart Score: C/O Chest Pain: No Risk Factors: Risk Factors: DM, Current or recent (<one month) smoker, HTN, HLP, family history of CAD, obesity. Risk Scores: Score 0 - 3: 2.5% MACE over next 6 weeks - Discharge Home Score 4 - 6: 20.3% MACE over next 6 weeks - Admit for Clinical Observation Score 7 - 10: 72.7% MACE over next 6 weeks - Early Invasive Strategies Course & Med Decision Making: Course & Med Decision Making Pertinent Labs and Imaging studies reviewed. (See chart for details) Patient is a very poor historian but had told the nurse she was doing methamphetamines. Patient appears to be dehydrated with worsening renal failure. Patient has atrophic kidney on CT, current creatinine 1.9 from a baseline of 1.1. Unable to use contrast due to patient's kidney function and will scan without contrast. Lactic checked due to concern for mesenteric ischemia but lactic was normal. Patient was agitated and refusing to sit still, needed multiple doses of Ativan to facilitate CT scanning. Admitted to hospitalist for hydration and lab monitoring [] Dragon Disclaimer: Dragon Disclaimer: This electronic medical record was generated, in whole or in part, using a voice recognition dictation system. Departure Departure: Impression: Primary Impression: Abdominal mass, LLQ (left lower quadrant) Additional Impressions: Hyperphosphatemia MAGGIE (acute kidney injury) Disposition: ADMITTED INPATIENT Admitting Physician: Christiano Rod Condition: STABLE Referrals: PCP,BAIRON (PCP) DIAZ BONNER MD Oct 28, 2021 18:58
[2021-10-28 19:51] LABS: BASO # 0.1 x10^3/uL (0.0-0.2); BASO % 0 % (0-3); EOS % 0 % (0-3); HEMATOCRIT 43.9 % (36.0-47.0); HEMOGLOBIN 14.1 g/dL (12.0-15.5); LYMPH # 1.2 x10^3/uL (1.0-4.8); LYMPH % 5 % (24-48); MEAN CORPUSCULAR HEMOGLOBIN 29 pg (25-35); MEAN CORPUSCULAR HGB CONC 32 g/dL (31-37); MEAN CORPUSCULAR VOLUME 91 fL (79-100); MONO # 1.8 x10^3/uL (0.0-1.1); MONO % 8 % (0-9); NEUT # 20.6 x10^3uL (1.8-7.7); NEUT % 87 % (31-73); PLATELET COUNT 225 x10^3/uL (140-400); RED BLOOD COUNT 4.81 x10^6/uL (3.50-5.40); RED CELL DISTRIBUTION WIDTH 14.3 % (11.5-14.5); WHITE BLOOD COUNT 23.7 x10^3/uL (4.0-11.0)
[2021-10-28 20:02] LABS: CALCIUM 9.3 mg/dL (8.5-10.1); CREATININE 1.9 mg/dL (0.6-1.0); GFR 26.4; POTASSIUM 5.1 mmol/L (3.5-5.1)
[2021-10-28 20:09] LABS: % BANDS 6 % (0-9); % LYMPHS 5 % (24-48); % MONOS 4 % (0-10); % SEGS 85 % (35-66)
[2021-10-28 20:10] LABS: PLT ESTIMATE ADEQUATE (ADEQUATE)
[2021-10-28 20:13] LABS: ALBUMIN 4.2 g/dL (3.4-5.0); ALBUMIN/GLOBULIN RATIO 1.3 (1.0-1.7); PHOSPHORUS 7.1 mg/dL (2.6-4.7); TOTAL BILIRUBIN 0.9 mg/dL (0.2-1.0); TOTAL PROTEIN 7.5 g/dL (6.4-8.2)
--- NOTE | 2021-10-28 20:57 | RAD ---
Abdominal and Pelvis CT, Without Contrast: History: Reason: LUQ pain / Spl. Instructions: NON CONTRAST DUE TO LAB VALUES GFR=26 / History: Comparison: None. Procedure: Axial images are obtained of the abdomen and pelvis, without IV or oral contrast. Oral Contrast: No Findings: Evaluation of solid organs is limited without contrast. There has been prior cholecystectomy. The appendix is normal. There is a mass in the pelvis on left that measures 4.7 x 4.0 cm. There is no fat plane between this mass and the sigmoid colon. The uterus and ovaries are not seen and could be removed. Liver: Normal. Spleen: Normal. Pancreas: Normal. Adrenal Glands: Normal. Kidneys: The left kidney is severely atrophic. Mild prominence of the right renal pelvis is likely an extrarenal pelvis.. There is no free air or free fluid. There is no lymphadenopathy. The urinary bladder appears normal. There is no pericolonic inflammation identified. Impression: Low density mass in the left hemipelvis. This could be arising from the sigmoid colon or could be ova homer in origin. This is suspicious for neoplasm. Correlation with CA-125. End impression PQRS Compliance Statement: One or more of the following individualized dose reduction techniques were utilized for this examinat ion: 1. Automated exposure control 2. Adjustment of the mA and/or kV according to patient size 3. Use of iterative reconstruction technique Electronically signed by: Ben Bourne III, MD (10/28/2021 8:55 PM) [facility]
--- NOTE | 2021-10-28 21:47 | EKG ---
[address] [address] Test Date: 2021-10-28 Test Time: 19:40:05 Pat Name: ABELARDO SWANSON Department: Room: Gender: F [employer]: : 1955 Requested By: DIAZ BONNER Order Number: [id number] Reading MD: Mike Herman Measurements Intervals [place] Rate: 98 P: 56 AR: 146 QRS: 48 QRSD: 84 T: 3 QT: 364 QTc: 467 Interpretive Statements SINUS RHYTHM MILD NON SPECIFIC ST CHANGES Electronically Signed On 10-30-2021 18:18:52 CDT by Mike Herman
[2021-10-28] MEDS ORDERED: ONDANSETRON PF 4 MG/2 ML VIAL. IVP PRN (22:00)
[2021-10-28] MEDS ORDERED: ACETAMINOPHEN 325 MG TABLET PO PRN (22:00)
[2021-10-28 22:33] LABS: COLOR,URINE YELLOW
[2021-10-28 22:34] LABS: BACTERIA,URINE 0 /HPF (0-FEW); CLARITY,URINE CLEAR; GLUCOSE,URINE NEG (NEG); NITRITE,URINE NEG (NEG); RBC,URINE RARE /HPF (0-2); SQUAMOUS EPITHELIAL CELL,UR OCC /LPF; UROBILINOGEN,URINE 0.2 mg/dL (0.2 mg/dL); WBC,URINE RARE /HPF (0-4)
[2021-10-28 22:38] LABS: BARBITURATES NEG (NEG); BENZODIAZEPINES NEG (NEG); CANNABINOIDS POS (NEG); COCAINE NEG (NEG); METHADONE NEG (NEG); OPIATES NEG (NEG); PHENCYCLIDINE NEG (NEG)
[2021-10-28 22:39] LABS: AMPHETAMINE/METHAMPHETAMINE POS (NEG)
[2021-10-28 23:42] LABS: INFLUENZA A PATIENT NEGATIVE (NEGATIVE); INFLUENZA B PATIENT NEGATIVE (NEGATIVE)
[2021-10-28 23:50] VITALS: BP 127/81
[2021-10-29] MEDS: IV NORMAL SALINE 1,000ML 1,000 ML IV SCH ×2 (00:29→08:35)
[2021-10-29 06:19] LABS: BASO # 0.1 x10^3/uL (0.0-0.2); BASO % 1 % (0-3); EOS # 0.1 x10^3/uL (0.0-0.7); EOS % 1 % (0-3); HEMATOCRIT 37.8 % (36.0-47.0); HEMOGLOBIN 12.2 g/dL (12.0-15.5); LYMPH # 1.9 x10^3/uL (1.0-4.8); LYMPH % 18 % (24-48); MEAN CORPUSCULAR HEMOGLOBIN 30 pg (25-35); MEAN CORPUSCULAR HGB CONC 32 g/dL (31-37); MEAN CORPUSCULAR VOLUME 93 fL (79-100); MONO % 9 % (0-9); NEUT # 7.8 x10^3uL (1.8-7.7); NEUT % 72 % (31-73); PLATELET COUNT 130 x10^3/uL (140-400); RED BLOOD COUNT 4.09 x10^6/uL (3.50-5.40); RED CELL DISTRIBUTION WIDTH 14.4 % (11.5-14.5); WHITE BLOOD COUNT 10.9 x10^3/uL (4.0-11.0)
[2021-10-29 06:26] LABS: CALCIUM 7.6 mg/dL (8.5-10.1); CREATININE 1.4 mg/dL (0.6-1.0); GFR 37.6
[2021-10-29 06:31] VITALS: BP 116/71
--- NOTE | 2021-10-29 09:27 | HP ---
DATE OF SERVICE: 10/29/2021 ADMIT DATE: 10/28/2021 ATTENDING PHYSICIAN: Dr. Rod. CHIEF COMPLAINT: Abdominal pain and nausea. HISTORY OF PRESENT ILLNESS: The patient is a 66-year-old female with multiple medical issues. She presented to the ED with generalized abdominal pain, diffuse in nature. She also has been abusing methamphetamine for many years. She has been vomiting. She had a hard bowel movement this morning, so there is no evidence of obstruction. The workup in the ED showed that she had a creatinine of 1.9 mg/dL. She was dehydrated. She was admitted for rehydration. There was also an incidental finding of a 4.7 x 4 cm mass in the left pelvis. The ovaries are not identified. She has had a previous hysterectomy whether she had oophorectomy remains to be seen. In any event, this needs followup. There is no obstruction at this time. Certainly, a colon mass cannot be excluded. Recommendations for a CA-125 and GI workup is entertained. Unfortunately, we do not have our specialists here for such workup. I gave her the copy of the report. Hopefully, she can follow up with her PCP as an outpatient. PAST MEDICAL HISTORY: Significant for coronary artery disease, hypertension, COPD. PAST SURGICAL HISTORY: Cholecystectomy, hysterectomy and tonsillectomy. She also had a right breast lumpectomy. She is a heavy smoker, 2 packs of cigarettes a day. She does not use any alcohol. FAMILY HISTORY: Noncontributory. REVIEW OF SYSTEMS: Significant for being edentulous. Her diet is limited. MEDICATIONS: She has the scheduled medications including albuterol, Lipitor, Coreg, fluticasone, Lasix, hydroxyzine, lisinopril, montelukast, potassium, prednisone, Zoloft, and trazodone. ALLERGIES: SHE IS ALLERGIC TO CODEINE, WHICH CAUSES A RASH. REVIEW OF SYSTEMS: Once again significant for her lack of teeth. Her diet is limited. She continues to smoke. No bloody stools. All other systems reviewed and turned to be negative. PHYSICAL EXAMINATION: GENERAL: When I saw her, this is an elderly female appearing older than stated age. VITAL SIGNS: Initial vital signs showed a blood pressure of 127/81, pulse is 80 and regular. She is afebrile. Oxygen saturation 92% on room air. HEENT: Head is without trauma. Pupils are reactive. Sclerae are nonicteric. Oropharynx clear. NECK: Supple. LUNGS: Clear. CARDIOVASCULAR: Regular heart tones. No gallop. ABDOMEN: Soft. I cannot palpate any masses. Bowel sounds were normoactive. EXTREMITIES: Showed trace edema. NEUROLOGIC: Focally intact. She did have some tardive dyskinesia upon observation of her mouth. PERTINENT LABORATORY STUDIES: Her admission hemoglobin was 14.1 grams, white count 23,000, repeat was down to 10,900. Chemistry panel: BUN and creatinine, BUN 27, creatinine is 1.9 mg/dL, baseline was 1.1. Urinalysis was clear. Toxicology positive for methamphetamine products. Serology negative for coronavirus and influenza. ASSESSMENT: 1. A 66-year-old female with dehydration. 2. Acute kidney injury due to dehydration. 3. History of substance abuse, methamphetamine. 4. Incidental finding of a 4.7 x 4 cm mass in the left pelvis. Certainly, malignancy is considered. Further workup is recommended. PLAN: 1. Admit to the inpatient unit, observation status. 2. Gentle IV hydration. 3. Serial chemistries. 4. I will contact her PCP to make sure she gets followup regarding the pelvic mass. BLANCO/GALILEO DR: Carlos TID: [id number] CC: Madiha Rushing MD
--- NOTE | 2021-10-29 14:33 | DS ---
DATE OF DISCHARGE: 10/29/2021 ATTENDING PHYSICIAN: Dr. Rod. FINAL DISCHARGE DIAGNOSES: 1. Dehydration, acute kidney injury, improved. 2. Polysubstance abuse, methamphetamine. 3. Chronic obstructive pulmonary disease with tobacco use. 4. Incidental finding of left pelvic mass. 5. Essential hypertension. 6. Hyperlipidemia. HISTORY AND PHYSICAL: The patient is a 66-year-old female with vague symptoms, admitted through the ED with dehydration. She had a workup in the ED showed a creatinine of 1.9 mg percent. Her baseline last reported was 1.1 mg/dL. She also had incidental finding of a 4.7 x 4 cm pelvic mass, which was highly recommended to be worked up as an outpatient. Certainly malignancy cannot be ruled out. PHYSICAL EXAMINATION: Please see the dictated note. PERTINENT LABORATORY AND X-RAY STUDIES: BUN, creatinine, electrolytes within normal range. Leukocytosis on admission was improved with a repeat CBC of 10,000. COURSE IN HOSPITAL: The patient was admitted. She was started on IV hydration. Followup creatinine came back down to 1.4 mg/dL. Diet was advanced. Home meds were continued. She felt better the next day. I gave her a copy of her CT report. She was discharged home with no changes on her meds. They include continuation of her albuterol, Lipitor, nitroglycerin, Coreg, lisinopril, Zoloft, trazodone, hydroxyzine, potassium, Lasix, fluticasone, montelukast, Nexium and prednisone dose is unchanged. Strong encouragement for a followup visit in the next 1-2 weeks with her PCP in regards to setting up outpatient evaluation of her pelvic mass. I explained this in detail to her, whether or not she comprehends remains to be seen. In addition, strong encouragement to avoid further substance abuse and tobacco use, whether or not she will make these adjustments and stop smoking and drug use remains to be seen. In any event, she was discharged from our hospital in stable condition, with explicit drug and followup care. BLANCO/MARIO ALBERTO HIDALGO: BLANCO/rene TID: [id number] CC: Madiha Rushing
== END 2021-10-29 10:53 | disposition home or self-care (01) ==
LOC: ER 18:31 → 1 SOUTH 21:49
PROVIDERS: ADMIT Hospitalist; ATTEND Hospitalist
DX: N17.9 Acute kidney failure, unspecified (principal); Z20.822 Contact with and (suspected) exposure to COVID-19; E86.0 Dehydration; F15.10 Other stimulant abuse, uncomplicated; J44.9 Chronic obstructive pulmonary disease, unspecified; I10 Essential (primary) hypertension; I25.10 Atherosclerotic heart disease of native coronary artery without angina pectoris; E78.5 Hyperlipidemia, unspecified; E83.39 Other disorders of phosphorus metabolism; F17.210 Nicotine dependence, cigarettes, uncomplicated; R10.32 Left lower quadrant pain; R19.00 Intra-abdominal and pelvic swelling, mass and lump, unspecified site; Z90.710 Acquired absence of both cervix and uterus; Z79.899 Other long term (current) drug therapy; Z98.890 Other specified postprocedural states; Z90.49 Acquired absence of other specified parts of digestive tract
CPT/HCPCS: 36415; 74176; 80048; 80053; 80307; 81001; 82550; 82947; 83605; 83690; 83735; 83880; 84100; 84484; 85007; 85025; 87428; 93005; 96361; 96374; 96376; 99285; G0378; G0480; J2060; J7030; U0003; G0379